=== PATIENT | female | born 1950 | race Caucasian/White ===

== ENCOUNTER 2018-02-03 15:15 | Emergency (ER) | payer OTHER, MEDICAID ==
[2018-02-03 16:19] LABS: % BASOPHILS 0.6 % (0.0-2.0); % EOSINOPHILS 0.8 % (0.0-5.0); % LYMPHOCYTES 20.2 % (20.0-50.0); % MONOCYTES 8.7 % (2.0-10.0); % NEUTROPHILS 69.7 % (40.0-80.0); BASOPHILE ABSOLUTE 0.1 Th/cumm (0-0.2); EOSINOPHILE ABSOLUTE 0.1 Th/cmm (0.1-0.4); HEMATOCRIT 36.9 % (41.0-60); HEMOGLOBIN 12.7 gm/dL (12-16); LYMPHOCYTE ABSOLUTE 2.3 Th/cmm (1.5-3.0); MEAN CELL VOLUME 88.3 fl (81-100); MEAN CORPUSCULAR HEMOGLOBIN 30.3 pg (27.0-31.0); MEAN CORPUSCULAR HGB CONC 34.3 pg (28.0-36.0); MEAN PLATELET VOLUME 8.8 fl; NEUTROPHILE ABSOLUTE 7.7 Th/cmm (1.8-8.0); PLATELET COUNT 258 Th/cmm (150-400); RED BLOOD COUNT 4.18 Mil/cmm (3.80-5.20); RED CELL DISTRIBUTION WIDTH 12.8 % (11.5-20.0); WHITE BLOOD COUNT 11.2 Th/cmm (4.8-10.8)
[2018-02-03 16:31] LABS: ANION GAP 16.6 (7.0-16.0); CALCIUM SERUM 9.7 mg/dL (8.6-10.3); CARBON DIOXIDE 22.7 mEq/L (21.0-31.0); CREATININE - SERUM 1.2 mg/dL (0.6-1.2); GFR AFRICAN-AMERICAN 57.3 ml/min (>90); GFR NON AFRICAN-AMERICAN 47.3 ml/min; POTASSIUM SERUM 4.3 mEq/L (3.5-5.1)
--- NOTE | 2018-02-03 16:52 | ED Physician Chart ---
ED Chief Complaint/HPI - Patient Information Date Seen:: 02/03/18 Time Seen:: 16:48 Chief Complaint:: Urinary burning sensation and frequency History of Present Illness:: 67 yo female had urinary burning sensation and frequency for 2 days. She had nausea, no vomiting, no fever. Patient had edema in bilateral lower extremities for 2 weeks. Allergies:: Allergies Allergy/AdvReac Type Severity Reaction Status Date / Time codeine Allergy Verified 08/15/16 10:31 Vitals:: Vital Signs - 8 hr 02/03/18 15:44 Temp 98.1 F HR 52 RR 16 BP 130/49 O2 Sat % 97 ED Review of Systems - Review of Systems General/Constitutional: No fever Skin: No rash Head: No headache Eyes: No pain ENT: No nasal drainage Neck: No neck pain Cardio Vascular: No chest pain Pulmonary: No SOB GI: Nausea, No vomiting Musculoskeletal: No bone or joint pain Neurological: No focal symptoms ED Past Medical History - Past Medical History Past Medical History: HTN, DM Social History: Non Smoker, No Alcohol, No Drug Use Surgical History: Family Medical History - Family Member Mother History Unknown: Yes Ethnicity: Living Status: Hx Family Cancer: Yes father History Unknown: Yes Hx Family Diabetes: Yes ED Physical Exam - Physical Examination General/Constitutional: Awake Head: Atraumatic Eyes: PERRL Skin: No skin lesions ENMT: Nasal exam nl Neck: No nuchal rigidity Respiratory: No Wheeze/Rhonchi/Rales Cardio Vascular: RRR, No murmur, gallop, rubs, NL S1 S2 GI: Nondistended Extremities: normal strength in all extremities Other Extremities comments:: 1+ edema in BLE Neuro/Psych: No focal deficits ED Labs/Radiology/EKG Results - Lab Results Results: Laboratory Tests 02/03/18 02/03/18 02/03/18 16:05 16:05 16:05 WBC 11.2 H RBC 4.18 Hgb 12.7 Hct 36.9 L MCV 88.3 MCH 30.3 MCHC Differential 34.3 RDW 12.8 Plt Count 258 MPV 8.8 Neutrophils % 69.7 Lymphocytes % 20.2 Monocytes % 8.7 Eosinophils % 0.8 Basophils % 0.6 Sodium 131 L Potassium 4.3 Chloride 96 L Carbon Dioxide 22.7 Anion Gap 16.6 H BUN 29 H Creatinine 1.2 Est GFR ( Amer) 57.3 Est GFR (Non-Af Amer) 47.3 BUN/Creatinine Ratio 24.2 Glucose 130 H Calcium 9.7 Creatine Kinase 50 Troponin I 0.01 Laboratory Last Values WBC 11.2 Th/cmm (4.8-10.8) H 02/03/18 16:05 RBC 4.18 Mil/cmm (3.80-5.20) 02/03/18 16:05 Hgb 12.7 gm/dL (12-16) 02/03/18 16:05 Hct 36.9 % (41.0-60) L 02/03/18 16:05 MCV 88.3 fl (81-100) 02/03/18 16:05 MCH 30.3 pg (27.0-31.0) 02/03/18 16:05 MCHC Differential 34.3 pg (28.0-36.0) 02/03/18 16:05 RDW 12.8 % (11.5-20.0) 02/03/18 16:05 Plt Count 258 Th/cmm (150-400) 02/03/18 16:05 MPV 8.8 fl 02/03/18 16:05 Neutrophils % 69.7 % (40.0-80.0) 02/03/18 16:05 Lymphocytes % 20.2 % (20.0-50.0) 02/03/18 16:05 Monocytes % 8.7 % (2.0-10.0) 02/03/18 16:05 Eosinophils % 0.8 % (0.0-5.0) 02/03/18 16:05 Basophils % 0.6 % (0.0-2.0) 02/03/18 16:05 Sodium 131 mEq/L (136-145) L 02/03/18 16:05 Potassium 4.3 mEq/L (3.5-5.1) 02/03/18 16:05 Chloride 96 mEq/L (98-107) L 02/03/18 16:05 Carbon Dioxide 22.7 mEq/L (21.0-31.0) 02/03/18 16:05 Anion Gap 16.6 (7.0-16.0) H 02/03/18 16:05 BUN 29 mg/dL (7-25) H 02/03/18 16:05 Creatinine 1.2 mg/dL (0.6-1.2) 02/03/18 16:05 Est GFR ( Amer) 57.3 ml/min (>90) 02/03/18 16:05 Est GFR (Non-Af Amer) 47.3 ml/min 02/03/18 16:05 BUN/Creatinine Ratio 24.2 02/03/18 16:05 Glucose 130 mg/dL (70-105) H 02/03/18 16:05 Calcium 9.7 mg/dL (8.6-10.3) 02/03/18 16:05 Creatine Kinase 50 U/L (30-223) 02/03/18 16:05 Troponin I 0.01 ng/mL (0.01-0.05) 02/03/18 16:05 Urine Source RANDOM 02/03/18 17:10 Urine Color YELLOW 02/03/18 17:10 Urine Clarity HAZY (CLEAR) 02/03/18 17:10 Urine pH 5.5 (4.6 - 8.0) 02/03/18 17:10 Ur Specific Balsam 1.010 (1.005-1.030) 02/03/18 17:10 Urine Protein NEGATIVE mg/dL (NEGATIVE) 02/03/18 17:10 Urine Glucose (UA) NEGATIVE mg/dL (NEGATIVE) 02/03/18 17:10 Urine Ketones NEGATIVE mg/dL (NEGATIVE) 02/03/18 17:10 Urine Blood NEGATIVE (NEGATIVE) 02/03/18 17:10 Urine Nitrate NEGATIVE (NEGATIVE) 02/03/18 17:10 Urine Bilirubin NEGATIVE (NEGATIVE) 02/03/18 17:10 Urine Urobilinogen 0.2 E.U./dL (0.2 - 1.0) 02/03/18 17:10 Ur Leukocyte Esterase MODERATE (NEGATIVE) H 02/03/18 17:10 Urine RBC 0-2 /hpf (0-5) 02/03/18 17:10 Urine WBC 10-25 /hpf (0-5) H 02/03/18 17:10 Ur Epithelial Cells MANY /lpf (FEW) 02/03/18 17:10 Urine Bacteria FEW /hpf (NONE SEEN) 02/03/18 17:10 - Radiology Results Results: CXR: no focal consolidation ED Assessment - Assessment General Assessment: UTI Leukocytosis Dehydration Assessment/Comments:: CBC, CMP, UA Rocephin 1g IV NS 1L IV bolus D/c home F/u PCP or return to ER if symptoms worsen ED Septic Shock - . Is Septic Shock (SBP<90, OR Lactate>4 mmol\L) present?: No - <6hrs of presentation: Vital Signs: Vital Signs - 8 hr 02/03/18 15:44 Temp 98.1 F HR 52 RR 16 BP 130/49 O2 Sat % 97 ED Reassessment (Disposition) - Reassessment Reassessment Condition:: Improved - Patient Disposition Discharge/Transfer:: Home ED Discharge Plan - Patient Disposition Admit/Discharge/Transfer: PT DISCHARGED HOME Condition at Disposition: Stable Instructions: Urinary Tract Infection, [id number], Dehydration, Adult, Easy- to-Read
[2018-02-03] MEDS ORDERED: Sodium Chloride 0.9% 1,000 ML IV ONE (18:31)
[2018-02-03] MEDS ORDERED: cefTRIAXone 1 GM in Sodium Chloride 0.9% 50 ML IV ONE (18:32)
[2018-02-03 19:19] LABS: URINE MICROSCOPIC INDICATED? YES; URINE SOURCE RANDOM
[2018-02-03 19:24] LABS: URINE BILIRUBIN NEGATIVE (NEGATIVE); URINE BLOOD NEGATIVE (NEGATIVE); URINE GLUCOSE (UA) NEGATIVE (NEGATIVE); URINE KETONE NEGATIVE (NEGATIVE); URINE LEUKOCYTE ESTERASE MODERATE (NEGATIVE); URINE NITRATE NEGATIVE (NEGATIVE); URINE PH 5.5 (4.6 - 8.0); URINE PROTEIN NEGATIVE (NEGATIVE); URINE UROBILINOGEN 0.2 E.U./dL (0.2 - 1.0)
[2018-02-03 19:28] LABS: URINE CLARITY HAZY (CLEAR); URINE COLOR YELLOW
[2018-02-03 19:29] LABS: URINE RBC 0-2 /hpf (0-5)
[2018-02-03 19:31] LABS: URINE BACTERIA FEW /hpf (NONE SEEN); URINE EPITHELIAL CELLS MANY /lpf (FEW)
--- NOTE | 2018-02-04 09:16 | Diagnostic Imaging Report ---
Chest x-ray single view History: Chest pain Comparison: 10/05/2016 The heart size is normal. No focal pulmonary parenchymal processes. No hilar or mediastinal abnormalities. Impression: No acute abnormalities
== END 2018-02-03 21:53 | disposition home or self-care (01) ==
LOC: ER 15:15
DX: N39.0 Urinary tract infection, site not specified (principal); D72.829 Elevated white blood cell count, unspecified; E86.0 Dehydration; I10 Essential (primary) hypertension; E11.9 Type 2 diabetes mellitus without complications; Z88.5 Allergy status to narcotic agent
CPT/HCPCS: 99285; 96365; 93005; 71045; 84484; 36415; 85025; 87086; 81001; 82550; 80048; J0696; J7030

== ENCOUNTER 2018-02-09 15:42 | Inpatient (IN) | payer OTHER, MEDICAID ==
--- NOTE | 2018-02-09 16:12 | ED Physician Chart ---
ED Chief Complaint/HPI - Patient Information Date Seen:: 02/09/18 Time Seen:: 16:00 Chief Complaint:: rash History of Present Illness:: Patient has had a rash for a few weeks but she got more lesions this morning. Patient had her first seizure with generalized shaking 5 days ago. She was admitted to [facility] where a CT head was done which was reportedly normal. Patient was discharged from [facility] yesterday. Patient has been on Xarelta 15 mg QD for a few years. Allergies:: Allergies Allergy/AdvReac Type Severity Reaction Status Date / Time codeine Allergy Verified 02/09/18 15:53 Vitals:: Vital Signs - 8 hr 02/09/18 15:47 Temp 98.8 F HR 74 RR 16 BP 118/58 O2 Sat % 99 Historian:: Patient, Friend Review:: Nurse's Note Reviewed ED Review of Systems - Review of Systems General/Constitutional: No fever, No chills, No weight loss, No weakness, No diaphoresis, No edema, No loss of appetite Skin: Skin lesions, Rash Head: No headache, No light-headedness Eyes: No loss of vision, No pain, No diplopia ENT: No earache, No nasal drainage, No sore throat, No tinnitus Neck: No neck pain, No swelling, No thyromegaly, No stiffness, No mass noted Cardio Vascular: No chest pain, No palpitations, No PND, No orthopnea, No edema Pulmonary: No SOB, No cough, No sputum, No wheezing GI: No nausea, No vomiting, No diarrhea, No pain, No melena, No hematochezia, No constipation, No hematemesis G/U: No dysuria, No frequency, No hematuria Musculoskeletal: No bone or joint pain, No back pain, No muscle pain Endocrine: No polyuria, No polydipsia Psychiatric: No prior psych history, No depression, No anxiety, No suicidal ideation Hematopoietic: No bruising, No lymphadenopathy Allergic/Immuno: No urticaria, No angioedema Neurological: No syncope, No focal symptoms, No weakness, No paresthesia, No headache, No seizure, No dizziness, No confusion, No vertigo ED Past Medical History - Past Medical History Past Medical History: HTN, DM Family History: Diabetes Melitus Social History: Non Smoker, No Alcohol Surgical History: other (cervical spine after a fall) Psychiatricy History: None Medication: Reviewed Family Medical History - Family Member Mother History Unknown: Yes Ethnicity: Living Status: Hx Family Cancer: No Hx Family Coronary Artery Disease: No Hx Family Congestive Heart Failure: No Hx Family Hypertension: No Hx Family Stroke: No Hx Family Diabetes: No Hx Family Seizures: No Hx Family Dementia: No Hx Family AIDS: No Hx Family HIV: No Hx Family COPD: No Hx Family Hepatitis: No Hx Family Psychiatric Problems: No Hx Family Tuberculosis: No father History Unknown: Yes Ethnicity: Living Status: Hx Family Cancer: No Hx Family Coronary Artery Disease: No Hx Family Congestive Heart Failure: No Hx Family Hypertension: Yes Hx Family Stroke: No Hx Family Diabetes: Yes Hx Family Seizures: No Hx Family Dementia: No Hx Family AIDS: No Hx Family HIV: No Hx Family COPD: No Hx Family Hepatitis: No Hx Family Psychiatric Problems: No Hx Family Tuberculosis: No ED Physical Exam - Physical Examination General/Constitutional: Well-developed, well-nourished, Alert, No distress Head: Atraumatic Eyes: Lids, conjuctiva normal, PERRL Other Skin comments:: Widespread petechia ENMT: External ears, nose nl, TM canals nl, Nasal exam nl Other ENMT comments:: Upper dentures Neck: No nuchal rigidity Respiratory: Nl effort/Exclusion, Clear to Auscultation Other Cardio Vascular comments:: Irregularly irregular rhythm with no murmur or extra sound GI: No tenderness/rebounding/guarding : No CVA tenderness Extremities: Normal digits & nails Neuro/Psych: No focal deficits ED Labs/Radiology/EKG Results - Lab Results Results: Laboratory Results - last 24 hr 02/09/18 02/09/18 02/09/18 16:18 16:18 16:18 WBC 12.0 H RBC 4.27 Hgb 12.8 Hct 38.7 L MCV 90.6 MCH 29.9 MCHC Differential 33.0 RDW 13.2 Plt Count 196 MPV 9.9 Neutrophils % 79.1 Lymphocytes % 11.5 L Monocytes % 8.6 Eosinophils % 0.3 Basophils % 0.5 PT 15.8 H INR 1.49 H PTT (Actin FS) 39.5 H Sodium 133 L Potassium 4.8 Chloride 102 Carbon Dioxide 17.9 L Anion Gap 17.9 H BUN 23 Creatinine 1.1 Est GFR ( Amer) > 60.0 Est GFR (Non-Af Amer) 52.3 BUN/Creatinine Ratio 20.9 Glucose 148 H Calcium 9.4 - EKG Interpretations Rate & Rhythm: atrial fibrillation with a rate of 67 [place]: normal axis ED Assessment - Assessment General Assessment: I spoke to Dr. Cotton and she will admit the patient and wishes a consult to Dr. Garrison Hatfield who according to Dr. Cotton put the patient on Xarelto. Spoke to Dr. Hernandez Hatfield who suggested a consult to which was already ordered by Dr. Cotton. ED Septic Shock - . Is Septic Shock (SBP<90, OR Lactate>4 mmol\L) present?: No - <6hrs of presentation: Vital Signs: Vital Signs - 8 hr 02/09/18 15:47 Temp 98.8 F HR 74 RR 16 BP 118/58 O2 Sat % 99 ED Reassessment (Disposition) - Reassessment Reassessment Condition:: Unchanged - Diagnosis Diagnosis:: petechia; history of recent first seizure. - Patient Disposition Admitted to:: Med/Surg Spoke to:: Nico Cotton Admitting Medical Physician:: Nico Cotton Condition at Disposition:: Stable, Unchanged
[2018-02-09 16:30] LABS: % BASOPHILS 0.5 % (0.0-2.0); % EOSINOPHILS 0.3 % (0.0-5.0); % LYMPHOCYTES 11.5 % (20.0-50.0); % MONOCYTES 8.6 % (2.0-10.0); % NEUTROPHILS 79.1 % (40.0-80.0); BASOPHILE ABSOLUTE 0.1 Th/cumm (0-0.2); HEMATOCRIT 38.7 % (41.0-60); HEMOGLOBIN 12.8 gm/dL (12-16); LYMPHOCYTE ABSOLUTE 1.4 Th/cmm (1.5-3.0); MEAN CELL VOLUME 90.6 fl (81-100); MEAN CORPUSCULAR HEMOGLOBIN 29.9 pg (27.0-31.0); MEAN PLATELET VOLUME 9.9 fl; NEUTROPHILE ABSOLUTE 9.5 Th/cmm (1.8-8.0); PLATELET COUNT 196 Th/cmm (150-400); RED BLOOD COUNT 4.27 Mil/cmm (3.80-5.20); RED CELL DISTRIBUTION WIDTH 13.2 % (11.5-20.0)
[2018-02-09 16:37] LABS: INR 1.49 (0.5-1.4); PROTHROMBIN TIME (TEST) 15.8 SECONDS (9.5-11.5)
[2018-02-09 16:49] LABS: ANION GAP 17.9 (7.0-16.0); BUN - UREA NITROGEN 23 mg/dL (7-25); CALCIUM SERUM 9.4 mg/dL (8.6-10.3); CARBON DIOXIDE 17.9 mEq/L (21.0-31.0); CHLORIDE 102 mEq/L (98-107); CREATININE - SERUM 1.1 mg/dL (0.6-1.2); GFR AFRICAN-AMERICAN > 60.0 ml/min (>90); GFR NON AFRICAN-AMERICAN 52.3 ml/min; GLUCOSE 148 mg/dL (70-105); POTASSIUM SERUM 4.8 mEq/L (3.5-5.1); SODIUM SERUM 133 mEq/L (136-145)
[2018-02-09] MEDS ORDERED: Hydrocodone/APAP 10 mg/325 mg Tab PO PRN ×2 (23:35→23:37)
[2018-02-10 01:05] LABS: URINE MICROSCOPIC INDICATED? YES; URINE SOURCE CLEAN C
[2018-02-10 01:07] LABS: URINE BILIRUBIN NEGATIVE (NEGATIVE); URINE BLOOD NEGATIVE (NEGATIVE); URINE GLUCOSE (UA) NEGATIVE (NEGATIVE); URINE KETONE NEGATIVE (NEGATIVE); URINE LEUKOCYTE ESTERASE NEGATIVE (NEGATIVE); URINE NITRATE NEGATIVE (NEGATIVE); URINE PROTEIN NEGATIVE (NEGATIVE); URINE UROBILINOGEN 0.2 E.U./dL (0.2 - 1.0)
[2018-02-10] MEDS: D5-0.45NS 1,000 ML IV SCH (01:24)
[2018-02-10 01:42] LABS: URINE CLARITY CLEAR (CLEAR); URINE COLOR YELLOW
[2018-02-10 01:43] LABS: URINE BACTERIA FEW /hpf (NONE SEEN); URINE EPITHELIAL CELLS FEW /lpf (FEW); URINE RBC 0-2 /hpf (0-5); URINE WBC 0-2 /hpf (0-5)
[2018-02-10 04:48] VITALS: BP 129/77
[2018-02-10] MEDS: INSULIN ASPART SLIDING SCALE 100 UNITS/ML UNIT SUBQ SCH ×2 (08:20→20:30)
[2018-02-10] MEDS ORDERED: Pneumococcal Vaccine 0.5 mL Vial IM ONE (09:00)
--- NOTE | 2018-02-10 12:50 | Diagnostic Imaging Report ---
Bilateral lower extremity Doppler venous ultrasound exam HISTORY: Pain/swelling Sonographic sector images were obtained through the deep venous systems of both legs. Associated Doppler data was obtained. The exam demonstrates patency of the common femoral, superficial femoral, popliteal, and posterior tibial veins bilaterally. Specifically, no thrombus is seen. There are normal compressibility and augmentation responses. IMPRESSION: Negative exam for deep vein thrombophlebitis.
--- NOTE | 2018-02-10 16:51 | History & Physical ---
ADMIT DATE: 02/10/2018 CHIEF COMPLAINT: Petechial rash, which developed recently. HISTORY OF PRESENT ILLNESS: The patient is known to my practice for several years and she is a 67-year-old female who was found to have brief episode of the seizure-like activity. At that time, the patient was transported to the [facility] where she was found to have a heart rate of 38-40 beats per minute on arrival and she was seen by the consultants and admitted and the neurologist has done the EEG and showed seizures and the patient was started on the Lamictal and the product management manager also has done an echocardiogram and the patient was discharged with the medication Lamictal for the seizures and following the discharge on 02/08/2018, the patient noticed on 02/09/2018 when she woke up petechial rash on her extremities, thighs, neck and she ended up in the Emergency Room of the [facility] and In the [facility], the ER physician did all the workup and the rest of the labs were all normal except the leukocytes were elevated to 14,000. The patient also has a history of the atrial fibrillation, for which she was on Xarelto for several years, so hence the etiology of the petechial rash was yet to be determined and then the patient was admitted here for the observation. In the previous study for the CT scan of the head, which was done for the seizure was reported to be normal and the patient had no more seizures in the [facility] and then she was discharged. PAST MEDICAL HISTORY: Significant for hypertension, coronary artery disease and diabetes type 2. SURGICAL HISTORY: None. FAMILY HISTORY: Noncontributory. SOCIAL HISTORY: No smoking, no alcohol, no drugs. She lives alone by herself and now her eldest son joined her to stay with her. ALLERGIES: She is allergic to CODEINE. REVIEW OF SYSTEMS: CONSTITUTIONAL: There is no fever, no weakness. SKIN: Has a petechial rash, see the pictures and is on both extremities and also on the neck and abdomen and other than that, there is no blanching noted. HEENT: Head: There is no headache. Ears, nose and throat: No nasal discharge. No throat pain. Eyes: No vision change. CARDIOVASCULAR: No palpitations. EXTREMITIES: No pedal edema. PULMONARY: No cough, no phlegm, no shortness of breath. GASTROINTESTINAL: No abdominal pain, no diarrhea, no nausea or vomiting. GENITOURINARY: No dysuria. MUSCULOSKELETAL: No bone or joint pain. NEUROLOGIC: The patient has no altered mentation and she does not have any focal numbness or weakness and no headache, no syncope. PSYCHIATRIC: No depression, no anxiety and no major psychiatric diagnosis entertained in the past. PHYSICAL EXAMINATION: GENERAL: The patient is awake and alert and recognized me and happy to see me. VITAL SIGNS: Temperature 98.48, heart rate 74, respirations 16, blood pressure 118/58 and oxygen saturation 99% on the room air. HEENT: Head is atraumatic and normocephalic. Eyes: PERRLA. Ear, nose, mouth and throat: Normal. Tongue is pink and moist. NECK: Supple. No lymphadenopathy noted. LUNGS: Clear to auscultate. No wheezes, no rhonchi. HEART: S1 and S2 heard with a regular rate and rhythm. No murmurs and no gallops. ABDOMEN: Nontender. No palpable lesions and normal bowel sounds. No guarding. EXTREMITIES: Mild edema was noted on the left lower extremity and then the Doppler study was done for the DVT, which was negative and the strength 5/5 in all 4 extremities and full range of motion noted and the patient is ambulatory and good muscle tone. NEUROLOGIC: The patient has no sensory and motor exam deficits and nonfocal. VASCULAR: Bilateral radial pulses were strong and equal and bilateral femoral pulses were equal. SKIN: As mentioned, petechial rashes noted on the both lower extremities and on the upper extremities and on the neck and on the abdomen on the left side. LABORATORY DATA: Lab results, which was done here shows WBC of 12.0 and hemoglobin 12.8, hematocrit 38.7, and platelet 196. BUN is 23 and creatinine is 1.19, sodium 133, potassium 4.8 and glucose 148 and calcium 9.4 and as mentioned before, ESR is 104. D-dimer is 903. BNP is 243. ASSESSMENT: At this time is: 1. Nonspecific petechial rash, etiology to be determined. 2. History of recent new onset seizures. 3. Lamictal, probable cause of the petechiae, so we will change it. 4. History of coronary artery disease and bradycardia. 5. Diabetes type 2. 6. Hypertension. 7. Atrial fibrillation. PLAN: To continue the seizure medications and continue seizure precautions and Dr. Hernandez Hatfield consulted for Cardiology, atrial fibrillation. Amma with atrial fibrillation and decision to make to continue the Xarelto and Dr. Martin has been consulted as Hematology/Oncology to evaluate on this petechial rash and the other abnormal labs and the patient has been on Levaquin from the discharge for the urinary tract infection of the Klebsiella pneumoniae as per the chart from the [facility], so Dr. Francisco Hatfield has been consulted to evaluate the antibiotic requirement and I spoke to Dr. Gonzalez's office at [phone] who is the medical assistant supervisortelephone directory delive[employer] and explained the situation and then he agrees with the management and he said to continue the tests, which might aid to determine the etiology of the rash and he agreed with my suggestion to change the Lamictal to Keppra and continue the Xarelto and will follow up her outpatient if Brynn Martin clears her from the petechial rash. [facility]# [id number]
--- NOTE | 2018-02-10 21:38 | Consultation ---
DATE OF CONSULTATION: 02/10/2018 HEMATOLOGY ONCOLOGY CONSULTATION REFERRING PHYSICIAN: Dr. Cotton. REASON FOR CONSULTATION: Purpura of the skin and leukocytosis. HISTORY OF PRESENT ILLNESS: The patient is a 67-year-old female who apparently was admitted to [facility] with a heart block and seizure. She was started on Lamictal and per the patient, she did not take it. The patient has been having recurrent rash on the skin of the upper and lower extremities and trunk. Per the caregiver, the patient had this going on for the past 1 month. The patient was found to have elevated white count was asked to evaluate. PAST MEDICAL HISTORY: Atrial fibrillation, on Xarelto; hypertension, heart block and diabetes. PAST SURGICAL HISTORY: None. FAMILY HISTORY: Noncontributory. SOCIAL HISTORY: No smoking or drinking. MEDICATIONS: Reviewed. PHYSICAL EXAMINATION: GENERAL: She is awake, alert, oriented. VITAL SIGNS: Stable. HEENT: Petechial rash. NECK: No lymphadenopathy. CHEST: Vesicular rash in chest. ABDOMEN: Soft. No organomegaly. EXTREMITIES: Petechial rash on both upper and lower extremities and back. NERVOUS SYSTEM: Nonfocal. LABORATORY DATA: White count 12, hemoglobin 12.8, platelet count 196. INR 1.49, PTT 39.5. Chemistry: Creatinine 1.1. ASSESSMENT AND PLAN: Palpable purpura on the trunk, upper and lower extremities, recurrent for the past 1 month. 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 The patient will also need the help from the director of graduate admissions and may need a skin biopsy for confirmation of the pathology. After obtaining all the above work, we will start empiric steroids. A chest x-ray will be also obtained and abdominal ultrasound because of the abnormal liver functions. The elevation of the INR is likely related to Xarelto. Thank you, Dr. Cotton for the opportunity to participate in the care of this interesting case. JOB# [id number]
[2018-02-11] MEDS: D5-0.45NS 1,000 ML IV SCH ×2 (01:12→22:09)
[2018-02-11] MEDS: INSULIN ASPART SLIDING SCALE 100 UNITS/ML UNIT SUBQ SCH ×2 (08:35→17:58)
--- NOTE | 2018-02-11 08:35 | Consultation ---
DATE OF CONSULTATION: 02/10/2018 HISTORY OF PRESENT ILLNESS: This is a 67-year-old female patient recently admitted with seizure activity at the [facility]. The patient also found to have bradycardia with atrial fibrillation. The patient has been on anticoagulation with Xarelto. The patient was discharged. At the present time, the patient developed petechia on the neck, chest, legs, and thighs. Hence, the patient is admitted. PAST MEDICAL HISTORY: Atrial fibrillation, urinary tract infection with [place], hypertension, angina, diabetes mellitus type 2, grand mal seizure, sinus bradycardia, and osteoporosis. FAMILY HISTORY: Unremarkable. SOCIAL HISTORY: No history of smoking, alcohol abuse. ALLERGIES: No known allergies. PHYSICAL EXAMINATION: VITAL SIGNS: Blood pressure 130/70, pulse 60, and respirations 20. HEAD: Normocephalic. No lumps or bumps. EYES: Pupils equal, reactive to light. Fundi show AV nicking, sclerae white, conjunctivae pink. NECK: Carotid 2+. Normal upstroke. JVD flat. Thyroid not palpable. Lymph nodes not palpable. CHEST: Shows increased AP diameter. No kyphosis, scoliosis. LUNGS: Bilateral bronchovesicular breath sounds. HEART: PMI fifth intercostal space over lateral to midclavicular line. S1 irregular. S2, S3, S4, soft systolic murmur. ABDOMEN: Soft. Liver, spleen not palpable. No organomegaly. Bowel sounds active. NEUROLOGIC: Grand mal seizures. EXTREMITIES: Peripheral pulses normal. The patient has petechial rash on the neck, chest, and thigh. CLINICAL IMPRESSION: 1. Petechial rash most likely secondary to Lamictal for seizures. 2. Grand mal seizures. 3. Atrial fibrillation. 4. Hypertension. 5. Angina. 6. Diabetes mellitus type 2. 7. Sinus bradycardia. 8. Osteoporosis. PLAN: At the present time, we will continue the patient on antibiotics. Have Hematology consult in view of petechia. Continue with Xarelto. JOB# [id number]
--- NOTE | 2018-02-11 08:58 | Diagnostic Imaging Report ---
Chest x-ray 2 views HISTORY:Pain The overall heart size is normal. No focal pulmonary processes. No hilar or mediastinal abnormalities. Degenerative changes and diffuse osteoporosis seen in the spine. Surgical changes noted within the cervical spine area. IMPRESSION: 1. No acute pulmonary processes
--- NOTE | 2018-02-11 13:05 | General Progress Note ---
Subjective - Review of Systems Service Date: 02/11/18 Objective - Results Result Diagrams: 02/09/18 16:18 02/09/18 16:18 Recent Labs: Laboratory Last Values WBC 12.0 Th/cmm (4.8-10.8) H 02/09/18 16:18 RBC 4.27 Mil/cmm (3.80-5.20) 02/09/18 16:18 Hgb 12.8 gm/dL (12-16) 02/09/18 16:18 Hct 38.7 % (41.0-60) L 02/09/18 16:18 MCV 90.6 fl (81-100) 02/09/18 16:18 MCH 29.9 pg (27.0-31.0) 02/09/18 16:18 MCHC Differential 33.0 pg (28.0-36.0) 02/09/18 16:18 RDW 13.2 % (11.5-20.0) 02/09/18 16:18 Plt Count 196 Th/cmm (150-400) 02/09/18 16:18 MPV 9.9 fl 02/09/18 16:18 Neutrophils % 79.1 % (40.0-80.0) 02/09/18 16:18 Lymphocytes % 11.5 % (20.0-50.0) L 02/09/18 16:18 Monocytes % 8.6 % (2.0-10.0) 02/09/18 16:18 Eosinophils % 0.3 % (0.0-5.0) 02/09/18 16:18 Basophils % 0.5 % (0.0-2.0) 02/09/18 16:18 ESR 104 mm/hr (0-30) H 02/10/18 05:15 PT 15.8 SECONDS (9.5-11.5) H 02/09/18 16:18 INR 1.49 (0.5-1.4) H 02/09/18 16:18 PTT (Actin FS) 39.5 SECONDS (26.0-38.0) H 02/09/18 16:18 D-Dimer 903 ng/mL (100-400) H 02/10/18 05:15 Sodium 133 mEq/L (136-145) L 02/09/18 16:18 Potassium 4.8 mEq/L (3.5-5.1) 02/09/18 16:18 Chloride 102 mEq/L (98-107) 02/09/18 16:18 Carbon Dioxide 17.9 mEq/L (21.0-31.0) L 02/09/18 16:18 Anion Gap 17.9 (7.0-16.0) H 02/09/18 16:18 BUN 23 mg/dL (7-25) 02/09/18 16:18 Creatinine 1.1 mg/dL (0.6-1.2) 02/09/18 16:18 Est GFR ( Amer) > 60.0 ml/min (>90) 02/09/18 16:18 Est GFR (Non-Af Amer) 52.3 ml/min 02/09/18 16:18 BUN/Creatinine Ratio 20.9 02/09/18 16:18 Glucose 148 mg/dL (70-105) H 02/09/18 16:18 POC Glucose 155 MG/DL (70 - 105) H 02/11/18 08:24 Calcium 9.4 mg/dL (8.6-10.3) 02/09/18 16:18 B-Natriuretic Peptide 243.0 pg/mL (5.0-100.0) H 02/10/18 05:15 Urine Source CLEAN C 02/10/18 00:20 Urine Color YELLOW 02/10/18 00:20 Urine Clarity CLEAR (CLEAR) 02/10/18 00:20 Urine pH 6.0 (4.6 - 8.0) 02/10/18 00:20 Ur Specific [place] <= 1.005 (1.005-1.030) 02/10/18 00:20 Urine Protein NEGATIVE mg/dL (NEGATIVE) 02/10/18 00:20 Urine Glucose (UA) NEGATIVE mg/dL (NEGATIVE) 02/10/18 00:20 Urine Ketones NEGATIVE mg/dL (NEGATIVE) 02/10/18 00:20 Urine Blood NEGATIVE (NEGATIVE) 02/10/18 00:20 Urine Nitrate NEGATIVE (NEGATIVE) 02/10/18 00:20 Urine Bilirubin NEGATIVE (NEGATIVE) 02/10/18 00:20 Urine Urobilinogen 0.2 E.U./dL (0.2 - 1.0) 02/10/18 00:20 Ur Leukocyte Esterase NEGATIVE (NEGATIVE) 02/10/18 00:20 Urine RBC 0-2 /hpf (0-5) 02/10/18 00:20 Urine WBC 0-2 /hpf (0-5) 02/10/18 00:20 Ur Epithelial Cells FEW /lpf (FEW) 02/10/18 00:20 Urine Bacteria FEW /hpf (NONE SEEN) 02/10/18 00:20 - Physical Exam Vitals and I&O: Vital Signs Temp 98.2 F 02/11/18 12:00 Pulse 117 02/11/18 12:00 Resp 18 02/11/18 12:00 BP 118/61 02/11/18 12:00 Pulse Ox 95 02/11/18 12:00 Intake & Output 02/10/18 02/11/18 02/11/18 18:59 06:59 18:59 Intake Total 1600 Output Total 3 Balance 1597 Weight (lbs) 73.985 kg 71.622 kg Intake: Intake, IV Amount 1000 D5-0.45NS 1,000 ml @ 50 1000 mls/hr IV .Q20H [facility] Rx#: [id number] Oral 600 Output: Urine 3 Other: Stool Characteristics Formed Weight Source Bedscale Bedscale Active Medications: Current Medications Acetaminophen/Hydrocodone Bitart ([place] 10 Mg/325 Mg) 1 tab PO Q4H PRN PRN Reason: Severe Pain Stop: 04/10/18 22:29 Dextrose/Sodium Chloride (D5-0.45ns) 1,000 mls @ 50 mls/hr IV .Q20H [facility] Stop: 04/10/18 23:44 Last Admin: 02/11/18 01:12 Dose: 50 mls/hr Insulin Aspart (Novolog Insulin Sliding Scale) 0 units SUBQ BID [facility] PRN Reason: Protocol Stop: 04/11/18 08:59 Last Admin: 02/11/18 08:35 Dose: 2 units Levetiracetam (Keppra) 500 mg PO BID [facility] Stop: 04/11/18 16:59 Last Admin: 02/11/18 08:35 Dose: 500 mg Levofloxacin (Levaquin) 500 mg PO DAILY [facility] Stop: 02/15/18 09:01 Last Admin: 02/11/18 08:35 Dose: 500 mg Tramadol HCl (Ultram) 50 mg PO Q4HR PRN PRN Reason: Mild to moderate pain Stop: 04/10/18 22:29 Last Admin: 02/10/18 04:05 Dose: 50 mg General: Alert HEENT: Atraumatic Neck: Supple Abdomen: Soft Neurological: Normal gait Skin: Other (petechiae on trunk, upper and lower ext.) - Procedures Procedures: Procedures Procedure Code Date DESTRUCTION TONGUE LES 25.1 01/20/09 EXCISION OF TONGUE LESION 15752 01/20/09 Assessment/Plan - Assessment Assessment: * Likely vasculitis'; all [place] was ordered Start steroids will need help of Supervisor Customer Complaint Service when discharged
[2018-02-11] MEDS: methylPREDNISolone SS 40 mg Vial IVP SCH ×2 (13:51→22:10)
--- NOTE | 2018-02-11 14:01 | General Progress Note ---
Subjective - Review of Systems Service Date: 02/11/18 Subjective: Patient seen and examined. Awake, alert, denies any complaints. Objective - Results Result Diagrams: 02/09/18 16:18 02/09/18 16:18 Recent Labs: Laboratory Last Values WBC 12.0 Th/cmm (4.8-10.8) H 02/09/18 16:18 RBC 4.27 Mil/cmm (3.80-5.20) 02/09/18 16:18 Hgb 12.8 gm/dL (12-16) 02/09/18 16:18 Hct 38.7 % (41.0-60) L 02/09/18 16:18 MCV 90.6 fl (81-100) 02/09/18 16:18 MCH 29.9 pg (27.0-31.0) 02/09/18 16:18 MCHC Differential 33.0 pg (28.0-36.0) 02/09/18 16:18 RDW 13.2 % (11.5-20.0) 02/09/18 16:18 Plt Count 196 Th/cmm (150-400) 02/09/18 16:18 MPV 9.9 fl 02/09/18 16:18 Neutrophils % 79.1 % (40.0-80.0) 02/09/18 16:18 Lymphocytes % 11.5 % (20.0-50.0) L 02/09/18 16:18 Monocytes % 8.6 % (2.0-10.0) 02/09/18 16:18 Eosinophils % 0.3 % (0.0-5.0) 02/09/18 16:18 Basophils % 0.5 % (0.0-2.0) 02/09/18 16:18 ESR 104 mm/hr (0-30) H 02/10/18 05:15 PT 15.8 SECONDS (9.5-11.5) H 02/09/18 16:18 INR 1.49 (0.5-1.4) H 02/09/18 16:18 PTT (Actin FS) 39.5 SECONDS (26.0-38.0) H 02/09/18 16:18 D-Dimer 903 ng/mL (100-400) H 02/10/18 05:15 Sodium 133 mEq/L (136-145) L 02/09/18 16:18 Potassium 4.8 mEq/L (3.5-5.1) 02/09/18 16:18 Chloride 102 mEq/L (98-107) 02/09/18 16:18 Carbon Dioxide 17.9 mEq/L (21.0-31.0) L 02/09/18 16:18 Anion Gap 17.9 (7.0-16.0) H 02/09/18 16:18 BUN 23 mg/dL (7-25) 02/09/18 16:18 Creatinine 1.1 mg/dL (0.6-1.2) 02/09/18 16:18 Est GFR ( Amer) > 60.0 ml/min (>90) 02/09/18 16:18 Est GFR (Non-Af Amer) 52.3 ml/min 02/09/18 16:18 BUN/Creatinine Ratio 20.9 02/09/18 16:18 Glucose 148 mg/dL (70-105) H 02/09/18 16:18 POC Glucose 155 MG/DL (70 - 105) H 02/11/18 08:24 Calcium 9.4 mg/dL (8.6-10.3) 02/09/18 16:18 B-Natriuretic Peptide 243.0 pg/mL (5.0-100.0) H 02/10/18 05:15 Urine Source CLEAN C 02/10/18 00:20 Urine Color YELLOW 02/10/18 00:20 Urine Clarity CLEAR (CLEAR) 02/10/18 00:20 Urine pH 6.0 (4.6 - 8.0) 02/10/18 00:20 Ur Specific [place] <= 1.005 (1.005-1.030) 02/10/18 00:20 Urine Protein NEGATIVE mg/dL (NEGATIVE) 02/10/18 00:20 Urine Glucose (UA) NEGATIVE mg/dL (NEGATIVE) 02/10/18 00:20 Urine Ketones NEGATIVE mg/dL (NEGATIVE) 02/10/18 00:20 Urine Blood NEGATIVE (NEGATIVE) 02/10/18 00:20 Urine Nitrate NEGATIVE (NEGATIVE) 02/10/18 00:20 Urine Bilirubin NEGATIVE (NEGATIVE) 02/10/18 00:20 Urine Urobilinogen 0.2 E.U./dL (0.2 - 1.0) 02/10/18 00:20 Ur Leukocyte Esterase NEGATIVE (NEGATIVE) 02/10/18 00:20 Urine RBC 0-2 /hpf (0-5) 02/10/18 00:20 Urine WBC 0-2 /hpf (0-5) 02/10/18 00:20 Ur Epithelial Cells FEW /lpf (FEW) 02/10/18 00:20 Urine Bacteria FEW /hpf (NONE SEEN) 02/10/18 00:20 - Physical Exam Vitals and I&O: Vital Signs Temp 98.2 F 02/11/18 12:00 Pulse 117 02/11/18 12:00 Resp 18 02/11/18 12:00 BP 118/61 02/11/18 12:00 Pulse Ox 95 02/11/18 12:00 Intake & Output 02/10/18 02/11/18 02/11/18 18:59 06:59 18:59 Intake Total 1600 Output Total 3 Balance 1597 Weight (lbs) 73.985 kg 71.622 kg Intake: Intake, IV Amount 1000 D5-0.45NS 1,000 ml @ 50 1000 mls/hr IV .Q20H [facility] Rx#: [id number] Oral 600 Output: Urine 3 Other: Stool Characteristics Formed Weight Source Bedscale Bedscale Active Medications: Current Medications Acetaminophen/Hydrocodone Bitart ([place] 10 Mg/325 Mg) 1 tab PO Q4H PRN PRN Reason: Severe Pain Stop: 04/10/18 22:29 Dextrose/Sodium Chloride (D5-0.45ns) 1,000 mls @ 50 mls/hr IV .Q20H [facility] Stop: 04/10/18 23:44 Last Admin: 02/11/18 01:12 Dose: 50 mls/hr Insulin Aspart (Novolog Insulin Sliding Scale) 0 units SUBQ BID [facility] PRN Reason: Protocol Stop: 04/11/18 08:59 Last Admin: 02/11/18 08:35 Dose: 2 units Levetiracetam (Keppra) 500 mg PO BID [facility] Stop: 04/11/18 16:59 Last Admin: 02/11/18 08:35 Dose: 500 mg Levofloxacin (Levaquin) 500 mg PO DAILY [facility] Stop: 02/15/18 09:01 Last Admin: 02/11/18 08:35 Dose: 500 mg Methylprednisolone Sodium Succinate (Solu-Medrol) 60 mg IVP Q8HR [facility] Stop: 04/12/18 13:14 Last Admin: 02/11/18 13:51 Dose: 60 mg Tramadol HCl (Ultram) 50 mg PO Q4HR PRN PRN Reason: Mild to moderate pain Stop: 04/10/18 22:29 Last Admin: 02/10/18 04:05 Dose: 50 mg General: Alert HEENT: Atraumatic Neck: Supple Abdomen: Soft Neurological: Normal gait Skin: Other (petechiae on trunk, upper and lower ext.) - Procedures Procedures: Procedures Procedure Code Date DESTRUCTION TONGUE LES 25.1 01/20/09 EXCISION OF TONGUE LESION 57852 01/20/09 Assessment/Plan - Assessment Assessment: 1. Nonspecific petechial rash, etiology to be determined. 2. History of recent new onset seizures. 3. Lamictal, probable cause of the petechiae, so we will change it. 4. History of coronary artery disease and bradycardia. 5. Diabetes type 2. 6. Hypertension. 7. Atrial fibrillation. - Plan Plan: seizure precautions iv solumedrol as ordered by boating safety officer monitor HR cbc/bmp in am continue current plan of care, will follow store consultant recommendations
--- NOTE | 2018-02-11 19:30 | Consultation ---
DATE OF CONSULTATION: 02/10/2018 INFECTIOUS DISEASE CONSULTATION HISTORY OF PRESENT ILLNESS: This is a 67-year-old female, who was brought to the Emergency with complaint of tonic-clonic seizures lasting few minutes only as witnessed by surrounding people. The patient fell down because of seizures; however, she did not get any major injury. She was on blood thinner Xarelto for atrial fibrillation. The patient was found to have leukocytes. Infectious consultation was called. Workup shows UTI. The patient already on antibiotics. PAST MEDICAL HISTORY: Atrial fibrillation, hypertension, diabetes, osteoporosis. PAST SURGICAL HISTORY: Back surgery. FAMILY HISTORY: Diabetes present. SOCIAL HISTORY: Nonsmoker. ALLERGIES: None. REVIEW OF SYSTEMS: A 14-point review of system negative except above. PHYSICAL EXAMINATION: GENERAL: The patient is alert, awake, oriented x 3 without any seizure activity. VITAL SIGNS: Temperature 98, pulse 60, respirations 20, blood pressure 130/70. HEENT: Mild pallor, no icterus or plaque. NECK: Supple. LUNGS: Breath sounds bilateral. CARDIOVASCULAR: S1. ABDOMEN: Soft, bowel sounds present. NODES: No cervical lymph nodes. LABORATORY DATA: UA positive for UTI. Cultures are pending. White count 12,000. Chest x-ray reviewed: No infiltrates. DIAGNOSES: Urinary tract infection, Levaquin; seizures, workup as per Neurology; atrial fibrillation, anticoagulation. Rest of the care as ordered in CPOE. Thank you, Dr. Cotton, for this consultation. JOB# [id number]
[2018-02-12] MEDS: methylPREDNISolone SS 40 mg Vial IVP SCH ×3 (05:22→21:52)
[2018-02-12 06:59] LABS: % BASOPHILS 0.1 % (0.0-2.0); % EOSINOPHILS 0.1 % (0.0-5.0); % LYMPHOCYTES 11.1 % (20.0-50.0); % MONOCYTES 2.5 % (2.0-10.0); % NEUTROPHILS 86.2 % (40.0-80.0); HEMATOCRIT 34.2 % (41.0-60); HEMOGLOBIN 11.7 gm/dL (12-16); LYMPHOCYTE ABSOLUTE 0.5 Th/cmm (1.5-3.0); MEAN CELL VOLUME 89.6 fl (81-100); MEAN CORPUSCULAR HEMOGLOBIN 30.5 pg (27.0-31.0); MEAN CORPUSCULAR HGB CONC 34.1 pg (28.0-36.0); MEAN PLATELET VOLUME 9.3 fl; MONOCYTE ABSOLUTE 0.1 Th/cmm (0.3-1.0); NEUTROPHILE ABSOLUTE 3.5 Th/cmm (1.8-8.0); PLATELET COUNT 216 Th/cmm (150-400); RED BLOOD COUNT 3.81 Mil/cmm (3.80-5.20); RED CELL DISTRIBUTION WIDTH 13.1 % (11.5-20.0); WHITE BLOOD COUNT 4.1 Th/cmm (4.8-10.8)
[2018-02-12 07:21] LABS: BUN - UREA NITROGEN 14 mg/dL (7-25); CALCIUM SERUM 9.4 mg/dL (8.6-10.3); CARBON DIOXIDE 24.5 mEq/L (21.0-31.0); CHLORIDE 104 mEq/L (98-107); CREATININE - SERUM 0.6 mg/dL (0.6-1.2); GFR AFRICAN-AMERICAN > 60.0 ml/min (>90); GFR NON AFRICAN-AMERICAN > 60.0 ml/min; GLUCOSE 268 mg/dL (70-105); POTASSIUM SERUM 3.5 mEq/L (3.5-5.1); SODIUM SERUM 136 mEq/L (136-145)
[2018-02-12 10:09] LABS: HEP B CORE IGM Negative (Negative); HEP C ANTIBODY <0.1 s/co ratio (0.0-0.9)
[2018-02-12] MEDS: INSULIN ASPART SLIDING SCALE 100 UNITS/ML UNIT SUBQ SCH ×2 (10:57→18:30)
[2018-02-12] MEDS: D5-0.45NS 1,000 ML IV SCH (13:32)
--- NOTE | 2018-02-12 15:42 | General Progress Note ---
Subjective - Review of Systems Service Date: 02/12/18 Subjective: Patient seen and examined. Awake, alert, neice Analilia at bedside. Petechial rash much better. Objective - Results Result Diagrams: 02/12/18 06:22 02/12/18 06:22 Recent Labs: Laboratory Last Values WBC 4.1 Th/cmm (4.8-10.8) L 02/12/18 06:22 RBC 3.81 Mil/cmm (3.80-5.20) 02/12/18 06:22 Hgb 11.7 gm/dL (12-16) L 02/12/18 06:22 Hct 34.2 % (41.0-60) L 02/12/18 06:22 MCV 89.6 fl (81-100) 02/12/18 06:22 MCH 30.5 pg (27.0-31.0) 02/12/18 06:22 MCHC Differential 34.1 pg (28.0-36.0) 02/12/18 06:22 RDW 13.1 % (11.5-20.0) 02/12/18 06:22 Plt Count 216 Th/cmm (150-400) 02/12/18 06:22 MPV 9.3 fl 02/12/18 06:22 Neutrophils % 86.2 % (40.0-80.0) H 02/12/18 06:22 Lymphocytes % 11.1 % (20.0-50.0) L 02/12/18 06:22 Monocytes % 2.5 % (2.0-10.0) 02/12/18 06:22 Eosinophils % 0.1 % (0.0-5.0) 02/12/18 06:22 Basophils % 0.1 % (0.0-2.0) 02/12/18 06:22 ESR 104 mm/hr (0-30) H 02/10/18 05:15 PT 15.8 SECONDS (9.5-11.5) H 02/09/18 16:18 INR 1.49 (0.5-1.4) H 02/09/18 16:18 PTT (Actin FS) 39.5 SECONDS (26.0-38.0) H 02/09/18 16:18 D-Dimer 903 ng/mL (100-400) H 02/10/18 05:15 Sodium 136 mEq/L (136-145) 02/12/18 06:22 Potassium 3.5 mEq/L (3.5-5.1) 02/12/18 06:22 Chloride 104 mEq/L (98-107) 02/12/18 06:22 Carbon Dioxide 24.5 mEq/L (21.0-31.0) 02/12/18 06:22 Anion Gap 11.0 (7.0-16.0) 02/12/18 06:22 BUN 14 mg/dL (7-25) 02/12/18 06:22 Creatinine 0.6 mg/dL (0.6-1.2) 02/12/18 06:22 Est GFR ( Amer) > 60.0 ml/min (>90) 02/12/18 06:22 Est GFR (Non-Af Amer) > 60.0 ml/min 02/12/18 06:22 BUN/Creatinine Ratio 23.3 02/12/18 06:22 Glucose 268 mg/dL (70-105) H 02/12/18 06:22 POC Glucose 290 MG/DL (70 - 105) H 02/12/18 10:52 Calcium 9.4 mg/dL (8.6-10.3) 02/12/18 06:22 B-Natriuretic Peptide 243.0 pg/mL (5.0-100.0) H 02/10/18 05:15 Urine Source CLEAN C 02/10/18 00:20 Urine Color YELLOW 02/10/18 00:20 Urine Clarity CLEAR (CLEAR) 02/10/18 00:20 Urine pH 6.0 (4.6 - 8.0) 02/10/18 00:20 Ur Specific [place] <= 1.005 (1.005-1.030) 02/10/18 00:20 Urine Protein NEGATIVE mg/dL (NEGATIVE) 02/10/18 00:20 Urine Glucose (UA) NEGATIVE mg/dL (NEGATIVE) 02/10/18 00:20 Urine Ketones NEGATIVE mg/dL (NEGATIVE) 02/10/18 00:20 Urine Blood NEGATIVE (NEGATIVE) 02/10/18 00:20 Urine Nitrate NEGATIVE (NEGATIVE) 02/10/18 00:20 Urine Bilirubin NEGATIVE (NEGATIVE) 02/10/18 00:20 Urine Urobilinogen 0.2 E.U./dL (0.2 - 1.0) 02/10/18 00:20 Ur Leukocyte Esterase NEGATIVE (NEGATIVE) 02/10/18 00:20 Urine RBC 0-2 /hpf (0-5) 02/10/18 00:20 Urine WBC 0-2 /hpf (0-5) 02/10/18 00:20 Ur Epithelial Cells FEW /lpf (FEW) 02/10/18 00:20 Urine Bacteria FEW /hpf (NONE SEEN) 02/10/18 00:20 Hep Bs Antigen Negative (Negative) 02/11/18 06:35 Hep B Core IgM Ab Negative (Negative) 02/11/18 06:35 Hepatitis C Antibody <0.1 s/co ratio (0.0-0.9) 02/11/18 06:35 - Physical Exam Vitals and I&O: Vital Signs Temp 97.2 F 02/12/18 12:00 Pulse 65 02/12/18 12:00 Resp 18 02/12/18 12:00 BP 157/82 02/12/18 12:00 Pulse Ox 97 02/12/18 12:00 Intake & Output 02/11/18 02/12/18 02/12/18 18:59 06:59 18:59 Intake Total 1780 769.167 Balance 1780 769.167 Weight (lbs) 75.296 kg Intake: Intake, IV Amount 1000 769.167 D5-0.45NS 1,000 ml @ 50 1000 769.167 mls/hr IV .Q20H [facility] Rx#: [id number] Oral 780 Other: # Voids 4 # Bowel Movements 0 Stool Characteristics Formed Weight Source Bedscale Active Medications: Current Medications Dextrose/Sodium Chloride (D5-0.45ns) 1,000 mls @ 50 mls/hr IV .Q20H [facility] Stop: 04/10/18 23:44 Last Admin: 02/12/18 13:32 Dose: 50 mls/hr Insulin Aspart (Novolog Insulin Sliding Scale) 0 units SUBQ BID [facility] PRN Reason: Protocol Stop: 04/11/18 08:59 Last Admin: 02/12/18 10:57 Dose: 6 units Levetiracetam (Keppra) 500 mg PO BID [facility] Stop: 04/11/18 16:59 Last Admin: 02/12/18 10:36 Dose: 500 mg Levofloxacin (Levaquin) 500 mg PO DAILY [facility] Stop: 02/15/18 09:01 Last Admin: 02/12/18 10:35 Dose: 500 mg Methylprednisolone Sodium Succinate (Solu-Medrol) 60 mg IVP Q8HR [facility] Stop: 04/12/18 13:14 Last Admin: 02/12/18 13:31 Dose: 60 mg Tramadol HCl (Ultram) 50 mg PO Q4HR PRN PRN Reason: Mild to moderate pain Stop: 04/10/18 22:29 Last Admin: 02/10/18 04:05 Dose: 50 mg General: Alert HEENT: Atraumatic Neck: Supple Abdomen: Soft Neurological: Normal gait Skin: Other (petechiae on trunk, upper and lower ext.) - Procedures Procedures: Procedures Procedure Code Date DESTRUCTION TONGUE LES 25.1 01/20/09 EXCISION OF TONGUE LESION 41387 01/20/09 Assessment/Plan - Assessment Assessment: 1. Nonspecific petechial rash, etiology to be determined. 2. History of recent new onset seizures. 3. Lamictal, probable cause of the petechiae, so we will change it. 4. History of coronary artery disease and bradycardia. 5. Diabetes type 2. 6. Hypertension. 7. Atrial fibrillation. - Plan Plan: seizure precautions iv solumedrol as ordered by licensed esthetician monitor HR cbc/bmp in am continue current plan of care, will follow customer sales consultant recommendations
--- NOTE | 2018-02-12 16:28 | Infectious Disease Prog Note ---
Infectious Disease Subjective - Review of Systems Service Date: 02/12/18 Events since last encounter: cc uti/seizure hpi-cx negative cxr negative on iv bax ros no fevr o/e vss chest claer abd soft ext pulse dx uti/seizure plan levaquin purpura w/u in progress seizure per neuro Infectious Disease Objective - Results Result Diagrams: 02/12/18 06:22 02/12/18 06:22 Recent Labs: Laboratory Last Values WBC 4.1 Th/cmm (4.8-10.8) L 02/12/18 06:22 RBC 3.81 Mil/cmm (3.80-5.20) 02/12/18 06:22 Hgb 11.7 gm/dL (12-16) L 02/12/18 06:22 Hct 34.2 % (41.0-60) L 02/12/18 06:22 MCV 89.6 fl (81-100) 02/12/18 06:22 MCH 30.5 pg (27.0-31.0) 02/12/18 06:22 MCHC Differential 34.1 pg (28.0-36.0) 02/12/18 06:22 RDW 13.1 % (11.5-20.0) 02/12/18 06:22 Plt Count 216 Th/cmm (150-400) 02/12/18 06:22 MPV 9.3 fl 02/12/18 06:22 Neutrophils % 86.2 % (40.0-80.0) H 02/12/18 06:22 Lymphocytes % 11.1 % (20.0-50.0) L 02/12/18 06:22 Monocytes % 2.5 % (2.0-10.0) 02/12/18 06:22 Eosinophils % 0.1 % (0.0-5.0) 02/12/18 06:22 Basophils % 0.1 % (0.0-2.0) 02/12/18 06:22 ESR 104 mm/hr (0-30) H 02/10/18 05:15 PT 15.8 SECONDS (9.5-11.5) H 02/09/18 16:18 INR 1.49 (0.5-1.4) H 02/09/18 16:18 PTT (Actin FS) 39.5 SECONDS (26.0-38.0) H 02/09/18 16:18 D-Dimer 903 ng/mL (100-400) H 02/10/18 05:15 Sodium 136 mEq/L (136-145) 02/12/18 06:22 Potassium 3.5 mEq/L (3.5-5.1) 02/12/18 06:22 Chloride 104 mEq/L (98-107) 02/12/18 06:22 Carbon Dioxide 24.5 mEq/L (21.0-31.0) 02/12/18 06:22 Anion Gap 11.0 (7.0-16.0) 02/12/18 06:22 BUN 14 mg/dL (7-25) 02/12/18 06:22 Creatinine 0.6 mg/dL (0.6-1.2) 02/12/18 06:22 Est GFR ( Amer) > 60.0 ml/min (>90) 02/12/18 06:22 Est GFR (Non-Af Amer) > 60.0 ml/min 02/12/18 06:22 BUN/Creatinine Ratio 23.3 02/12/18 06:22 Glucose 268 mg/dL (70-105) H 02/12/18 06:22 POC Glucose 290 MG/DL (70 - 105) H 02/12/18 10:52 Calcium 9.4 mg/dL (8.6-10.3) 02/12/18 06:22 B-Natriuretic Peptide 243.0 pg/mL (5.0-100.0) H 02/10/18 05:15 Urine Source CLEAN C 02/10/18 00:20 Urine Color YELLOW 02/10/18 00:20 Urine Clarity CLEAR (CLEAR) 02/10/18 00:20 Urine pH 6.0 (4.6 - 8.0) 02/10/18 00:20 Ur Specific [place] <= 1.005 (1.005-1.030) 02/10/18 00:20 Urine Protein NEGATIVE mg/dL (NEGATIVE) 02/10/18 00:20 Urine Glucose (UA) NEGATIVE mg/dL (NEGATIVE) 02/10/18 00:20 Urine Ketones NEGATIVE mg/dL (NEGATIVE) 02/10/18 00:20 Urine Blood NEGATIVE (NEGATIVE) 02/10/18 00:20 Urine Nitrate NEGATIVE (NEGATIVE) 02/10/18 00:20 Urine Bilirubin NEGATIVE (NEGATIVE) 02/10/18 00:20 Urine Urobilinogen 0.2 E.U./dL (0.2 - 1.0) 02/10/18 00:20 Ur Leukocyte Esterase NEGATIVE (NEGATIVE) 02/10/18 00:20 Urine RBC 0-2 /hpf (0-5) 02/10/18 00:20 Urine WBC 0-2 /hpf (0-5) 02/10/18 00:20 Ur Epithelial Cells FEW /lpf (FEW) 02/10/18 00:20 Urine Bacteria FEW /hpf (NONE SEEN) 02/10/18 00:20 Hep Bs Antigen Negative (Negative) 02/11/18 06:35 Hep B Core IgM Ab Negative (Negative) 02/11/18 06:35 Hepatitis C Antibody <0.1 s/co ratio (0.0-0.9) 02/11/18 06:35 - Physical Exam Vitals and I&O: Vital Signs Temp 97.2 F 02/12/18 12:00 Pulse 65 02/12/18 12:00 Resp 18 02/12/18 12:00 BP 157/82 02/12/18 12:00 Pulse Ox 97 02/12/18 12:00 Intake & Output 02/11/18 02/12/18 02/12/18 18:59 06:59 18:59 Intake Total 1780 769.167 Balance 1780 769.167 Weight (lbs) 75.296 kg Intake: Intake, IV Amount 1000 769.167 D5-0.45NS 1,000 ml @ 50 1000 769.167 mls/hr IV .Q20H [facility] Rx#: [id number] Oral 780 Other: # Voids 4 # Bowel Movements 0 Stool Characteristics Formed Weight Source Bedscale Active Medications: Current Medications Dextrose/Sodium Chloride (D5-0.45ns) 1,000 mls @ 50 mls/hr IV .Q20H [facility] Stop: 04/10/18 23:44 Last Admin: 02/12/18 13:32 Dose: 50 mls/hr Insulin Aspart (Novolog Insulin Sliding Scale) 0 units SUBQ BID [facility] PRN Reason: Protocol Stop: 04/11/18 08:59 Last Admin: 02/12/18 10:57 Dose: 6 units Levetiracetam (Keppra) 500 mg PO BID [facility] Stop: 04/11/18 16:59 Last Admin: 02/12/18 10:36 Dose: 500 mg Levofloxacin (Levaquin) 500 mg PO DAILY [facility] Stop: 02/15/18 09:01 Last Admin: 02/12/18 10:35 Dose: 500 mg Methylprednisolone Sodium Succinate (Solu-Medrol) 60 mg IVP Q8HR [facility] Stop: 04/12/18 13:14 Last Admin: 02/12/18 13:31 Dose: 60 mg Tramadol HCl (Ultram) 50 mg PO Q4HR PRN PRN Reason: Mild to moderate pain Stop: 04/10/18 22:29 Last Admin: 02/10/18 04:05 Dose: 50 mg - Procedures Procedures: Procedures Procedure Code Date DESTRUCTION TONGUE LES 25.1 01/20/09 EXCISION OF TONGUE LESION 64586 01/20/09
[2018-02-13] MEDS: methylPREDNISolone SS 40 mg Vial IVP SCH ×2 (05:39→13:28)
[2018-02-13 05:51] LABS: LYMPHOCYTE ABSOLUTE 0.4 Th/cmm (1.5-3.0); MEAN PLATELET VOLUME 9.3 fl; NEUTROPHILE ABSOLUTE 8.9 Th/cmm (1.8-8.0)
[2018-02-13 05:58] LABS: % BASOPHILS 0.1 % (0.0-2.0); % EOSINOPHILS 0.1 % (0.0-5.0); % MONOCYTES 2.7 % (2.0-10.0); % NEUTROPHILS 92.5 % (40.0-80.0); HEMOGLOBIN 11.5 gm/dL (12-16); MEAN CELL VOLUME 90.5 fl (81-100); MEAN CORPUSCULAR HEMOGLOBIN 30.6 pg (27.0-31.0); MEAN CORPUSCULAR HGB CONC 33.8 pg (28.0-36.0); MONOCYTE ABSOLUTE 0.3 Th/cmm (0.3-1.0); PLATELET COUNT 231 Th/cmm (150-400); RED BLOOD COUNT 3.76 Mil/cmm (3.80-5.20); RED CELL DISTRIBUTION WIDTH 12.9 % (11.5-20.0)
[2018-02-13 05:59] LABS: % LYMPHOCYTES 4.6 % (20.0-50.0); WHITE BLOOD COUNT 9.6 Th/cmm (4.8-10.8)
[2018-02-13 06:06] LABS: ANION GAP 11.9 (7.0-16.0); BUN - UREA NITROGEN 16 mg/dL (7-25); CALCIUM SERUM 9.4 mg/dL (8.6-10.3); CARBON DIOXIDE 24.8 mEq/L (21.0-31.0); CHLORIDE 105 mEq/L (98-107); CREATININE - SERUM 0.6 mg/dL (0.6-1.2); GFR AFRICAN-AMERICAN > 60.0 ml/min (>90); GFR NON AFRICAN-AMERICAN > 60.0 ml/min; INR 1.1 (0.5-1.4); POTASSIUM SERUM 3.7 mEq/L (3.5-5.1); PROTHROMBIN TIME (TEST) 11.5 SECONDS (9.5-11.5); SODIUM SERUM 138 mEq/L (136-145)
[2018-02-13 06:07] LABS: GLUCOSE 293 mg/dL (70-105)
[2018-02-13] MEDS: INSULIN ASPART SLIDING SCALE 100 UNITS/ML UNIT SUBQ SCH ×2 (08:55→17:07)
[2018-02-13] MEDS ORDERED: Magnesium Hydroxide (MOM) 30 mL UDC PO PRN (09:27)
--- NOTE | 2018-02-13 10:50 | General Progress Note ---
Subjective - Review of Systems Service Date: 02/13/18 Subjective: Feels better Objective - Results Result Diagrams: 02/13/18 05:30 02/13/18 05:30 Recent Labs: Laboratory Last Values WBC 9.6 Th/cmm (4.8-10.8) D 02/13/18 05:30 RBC 3.76 Mil/cmm (3.80-5.20) L 02/13/18 05:30 Hgb 11.5 gm/dL (12-16) L 02/13/18 05:30 Hct 34.0 % (41.0-60) L 02/13/18 05:30 MCV 90.5 fl (81-100) 02/13/18 05:30 MCH 30.6 pg (27.0-31.0) 02/13/18 05:30 MCHC Differential 33.8 pg (28.0-36.0) 02/13/18 05:30 RDW 12.9 % (11.5-20.0) 02/13/18 05:30 Plt Count 231 Th/cmm (150-400) 02/13/18 05:30 MPV 9.3 fl 02/13/18 05:30 Neutrophils % 92.5 % (40.0-80.0) H 02/13/18 05:30 Lymphocytes % 4.6 % (20.0-50.0) L 02/13/18 05:30 Monocytes % 2.7 % (2.0-10.0) 02/13/18 05:30 Eosinophils % 0.1 % (0.0-5.0) 02/13/18 05:30 Basophils % 0.1 % (0.0-2.0) 02/13/18 05:30 ESR 104 mm/hr (0-30) H 02/10/18 05:15 PT 11.5 SECONDS (9.5-11.5) 02/13/18 05:30 INR 1.10 (0.5-1.4) 02/13/18 05:30 PTT (Actin FS) 25.1 SECONDS (26.0-38.0) L 02/13/18 05:30 D-Dimer 903 ng/mL (100-400) H 02/10/18 05:15 Sodium 138 mEq/L (136-145) 02/13/18 05:30 Potassium 3.7 mEq/L (3.5-5.1) 02/13/18 05:30 Chloride 105 mEq/L (98-107) 02/13/18 05:30 Carbon Dioxide 24.8 mEq/L (21.0-31.0) 02/13/18 05:30 Anion Gap 11.9 (7.0-16.0) 02/13/18 05:30 BUN 16 mg/dL (7-25) 02/13/18 05:30 Creatinine 0.6 mg/dL (0.6-1.2) 02/13/18 05:30 Est GFR ( Amer) > 60.0 ml/min (>90) 02/13/18 05:30 Est GFR (Non-Af Amer) > 60.0 ml/min 02/13/18 05:30 BUN/Creatinine Ratio 26.7 02/13/18 05:30 Glucose 293 mg/dL (70-105) H D 02/13/18 05:30 POC Glucose 284 MG/DL (70 - 105) H 02/13/18 08:41 Calcium 9.4 mg/dL (8.6-10.3) 02/13/18 05:30 B-Natriuretic Peptide 243.0 pg/mL (5.0-100.0) H 02/10/18 05:15 Urine Source CLEAN C 02/10/18 00:20 Urine Color YELLOW 02/10/18 00:20 Urine Clarity CLEAR (CLEAR) 02/10/18 00:20 Urine pH 6.0 (4.6 - 8.0) 02/10/18 00:20 Ur Specific [place] <= 1.005 (1.005-1.030) 02/10/18 00:20 Urine Protein NEGATIVE mg/dL (NEGATIVE) 02/10/18 00:20 Urine Glucose (UA) NEGATIVE mg/dL (NEGATIVE) 02/10/18 00:20 Urine Ketones NEGATIVE mg/dL (NEGATIVE) 02/10/18 00:20 Urine Blood NEGATIVE (NEGATIVE) 02/10/18 00:20 Urine Nitrate NEGATIVE (NEGATIVE) 02/10/18 00:20 Urine Bilirubin NEGATIVE (NEGATIVE) 02/10/18 00:20 Urine Urobilinogen 0.2 E.U./dL (0.2 - 1.0) 02/10/18 00:20 Ur Leukocyte Esterase NEGATIVE (NEGATIVE) 02/10/18 00:20 Urine RBC 0-2 /hpf (0-5) 02/10/18 00:20 Urine WBC 0-2 /hpf (0-5) 02/10/18 00:20 Ur Epithelial Cells FEW /lpf (FEW) 02/10/18 00:20 Urine Bacteria FEW /hpf (NONE SEEN) 02/10/18 00:20 Hep Bs Antigen Negative (Negative) 02/11/18 06:35 Hep B Core IgM Ab Negative (Negative) 02/11/18 06:35 Hepatitis C Antibody <0.1 s/co ratio (0.0-0.9) 02/11/18 06:35 - Physical Exam Vitals and I&O: Vital Signs Temp 98.2 F 02/13/18 08:11 Pulse 68 02/13/18 08:11 Resp 18 02/13/18 08:11 BP 149/71 02/13/18 08:11 Pulse Ox 97 02/13/18 08:11 Intake & Output 02/12/18 02/13/18 02/13/18 18:59 06:59 18:59 Intake Total 969.167 790 Output Total 600 Balance 369.167 790 Weight (lbs) 75.296 kg 76.204 kg Intake: Intake, IV Amount 769.167 D5-0.45NS 1,000 ml @ 50 769.167 mls/hr IV .Q20H [facility] Rx#: [id number] Oral 200 350 Tube Feeding 440 Output: Urine 600 Other: # Voids 4 # Bowel Movements 0 Stool Characteristics Soft Soft Weight Source Estimated Bedscale Active Medications: Current Medications Bisacodyl (Dulcolax 5 Mg Ec Tab) 5 mg PO DAILY [facility] Stop: 04/15/18 20:59 Glipizide (Glucotrol) 5 mg PO BID [facility] Stop: 04/14/18 16:59 Hydroxyzine HCl (Atarax) 25 mg PO QID PRN; Protocol PRN Reason: Itching Stop: 04/14/18 09:24 Insulin Aspart (Novolog Insulin Sliding Scale) 0 units SUBQ BID [facility]YE PRN Reason: Protocol Stop: 04/11/18 08:59 Last Admin: 02/13/18 08:55 Dose: 6 units Levetiracetam (Keppra) 500 mg PO BID [facility] Stop: 04/11/18 16:59 Last Admin: 02/13/18 08:59 Dose: 500 mg Levofloxacin (Levaquin) 500 mg PO DAILY [facility] Stop: 02/15/18 09:01 Last Admin: 02/13/18 09:00 Dose: 500 mg Magnesium Hydroxide (Milk Of Magnesia) 30 ml PO DAILY PRN PRN Reason: Constipation Stop: 04/14/18 09:26 Metformin HCl (Glucophage) 500 mg PO BID [facility] Stop: 04/14/18 16:59 Methylprednisolone Sodium Succinate (Solu-Medrol) 60 mg IVP Q8HR [facility] Stop: 04/12/18 13:14 Last Admin: 02/13/18 05:39 Dose: 60 mg Tramadol HCl (Ultram) 50 mg PO Q4HR PRN PRN Reason: Mild to moderate pain Stop: 04/10/18 22:29 Last Admin: 02/10/18 04:05 Dose: 50 mg General: Alert HEENT: Atraumatic Neck: Supple Abdomen: Soft Neurological: Normal gait Skin: Other (petechiae on trunk, upper and lower ext. are improving. facial and neck rash better) - Procedures Procedures: Procedures Procedure Code Date DESTRUCTION TONGUE LES 25.1 01/20/09 EXCISION OF TONGUE LESION 87893 01/20/09 Assessment/Plan - Assessment Assessment: * Likely vasculitis'; all johnston was ordered Continue steroids May send home on oral prednisone 40 mg daily and follow as outpatient will need help of Computational Mathematician when discharged
--- NOTE | 2018-02-13 15:07 | Discharge Summary ---
General Discharge Summary - Discharge Summary Date of Admission: 02/09/18 Admitting Diagnosis: Petichial rash, etiology unk Discharge Date: 02/13/18 Discharge Diagnosis: vasculitis. New onset Seizures. Atrial fibrillation. DM- 2. CAD. Hx Bradycardia. Hx Hypertension. S/P Cataract surgery. Pruritis Laboratory Findings: Laboratory Results - last 24 hr 02/12/18 02/12/18 02/12/18 19:28 20:10 21:01 WBC RBC Hgb Hct MCV MCH MCHC Differential RDW Plt Count MPV Neutrophils % Lymphocytes % Monocytes % Eosinophils % Basophils % PT INR PTT (Actin FS) Sodium Potassium Chloride Carbon Dioxide Anion Gap BUN Creatinine Est GFR ( Amer) Est GFR (Non-Af Amer) BUN/Creatinine Ratio Glucose 394 H D POC Glucose 401 H 326 H Calcium 02/13/18 02/13/18 02/13/18 00:16 05:30 05:30 WBC 9.6 D RBC 3.76 L Hgb 11.5 L Hct 34.0 L MCV 90.5 MCH 30.6 MCHC Differential 33.8 RDW 12.9 Plt Count 231 MPV 9.3 Neutrophils % 92.5 H Lymphocytes % 4.6 L Monocytes % 2.7 Eosinophils % 0.1 Basophils % 0.1 PT 11.5 INR 1.10 PTT (Actin FS) 25.1 L Sodium Potassium Chloride Carbon Dioxide Anion Gap BUN Creatinine Est GFR ( Amer) Est GFR (Non-Af Amer) BUN/Creatinine Ratio Glucose POC Glucose 280 H Calcium 02/13/18 02/13/18 05:30 08:41 WBC RBC Hgb Hct MCV MCH MCHC Differential RDW Plt Count MPV Neutrophils % Lymphocytes % Monocytes % Eosinophils % Basophils % PT INR PTT (Actin FS) Sodium 138 Potassium 3.7 Chloride 105 Carbon Dioxide 24.8 Anion Gap 11.9 BUN 16 Creatinine 0.6 Est GFR ( Amer) > 60.0 Est GFR (Non-Af Amer) > 60.0 BUN/Creatinine Ratio 26.7 Glucose 293 H D POC Glucose 284 H Calcium 9.4 Hospital Course: During her hospital stay patient was seen by Hematology - oncology, Print Color Operator and ID. Patient was treated with levaquin for UTI, Klebsiella pneumoniae, . Vasculitis improved with steroid treatment.Rash improved. Xeralto reinstated back for AF. Lamictal changed to Keppra 500 mg bid. Atarax 25 q 6 hrs prn started for itching. Blood sugars were on the high side, probably due to steroid. Patient is on Glipizide 5, bid and metformin 500 bid. will continue all the home meds. Follow up tom suarez explained. will get referrals for Rheumatology, Neurology and Ophtholmology. over all she did better with her treatment and during her stay with us. No seizures noted. Treatment: as per the chart and as in course of the stay Condition at Discharge: Stable Disposition: PT DISCHARGED HOME Home Medications: Home Medication Medication Instructions Recorded Type Aspirin EC [Ecotrin] 81 mg PO DAILY 08/15/16 History Calcium Carbonate [Oyster Shell 500 mg PO BID 08/15/16 History Calcium] Metoprolol Tartrate 50 mg PO BID 08/15/16 History Potassium Chloride ER [Klor-Con] 20 meq PO DAILY 08/15/16 History Calcium Carbonate/Vitamin D3 1 tab 02/09/18 History [Oysco D Tablet] Nifedipine [Nifedipine ER] 90 mg PO DAILY 02/09/18 History Bisacodyl [Dulcolax 5 Mg Ec Tab] 5 mg PO DAILY ect 02/13/18 Rx Glipizide [Glucotrol] 5 mg PO BID tab 02/13/18 Rx Levetiracetam [Keppra] 500 mg PO BID tab 02/13/18 Rx Rivaroxaban [Xarelto] 15 mg PO DAILY tab 02/13/18 Rx hydrOXYzine [Atarax*] 25 mg PO QID PRN tab 02/13/18 Rx metFORMIN [Glucophage] 500 mg PO BID tab 02/13/18 Rx traMADol HCl [Ultram*] 50 mg PO Q4HR PRN tab 02/13/18 Rx Inpatient Medications: Current Medications Bisacodyl (Dulcolax 5 Mg Ec Tab) 5 mg PO DAILY [facility] Stop: 04/15/18 20:59 Glipizide (Glucotrol) 5 mg PO BID [facility] Stop: 04/14/18 16:59 Hydroxyzine HCl (Atarax) 25 mg PO QID PRN; Protocol PRN Reason: Itching Stop: 04/14/18 09:24 Last Admin: 02/13/18 11:01 Dose: 25 mg Insulin Aspart (Novolog Insulin Sliding Scale) 0 units SUBQ BID [facility] PRN Reason: Protocol Stop: 04/11/18 08:59 Last Admin: 02/13/18 08:55 Dose: 6 units Levetiracetam (Keppra) 500 mg PO BID [facility] Stop: 04/11/18 16:59 Last Admin: 02/13/18 08:59 Dose: 500 mg Levofloxacin (Levaquin) 500 mg PO DAILY [facility] Stop: 02/15/18 09:01 Last Admin: 02/13/18 09:00 Dose: 500 mg Magnesium Hydroxide (Milk Of Magnesia) 30 ml PO DAILY PRN PRN Reason: Constipation Stop: 04/14/18 09:26 Metformin HCl (Glucophage) 500 mg PO BID [facility] Stop: 04/14/18 16:59 Methylprednisolone Sodium Succinate (Solu-Medrol) 60 mg IVP Q8HR [facility] Stop: 04/12/18 13:14 Last Admin: 02/13/18 13:28 Dose: 60 mg Rivaroxaban (Xarelto) 15 mg PO DAILY [facility] Stop: 04/14/18 12:29 Last Admin: 02/13/18 13:28 Dose: 15 mg Tramadol HCl (Ultram) 50 mg PO Q4HR PRN PRN Reason: Mild to moderate pain Stop: 04/10/18 22:29 Last Admin: 02/10/18 04:05 Dose: 50 mg Consults and Follow-Up: Nico Cotton [Primary Care Provider] -
--- NOTE | 2018-02-13 18:38 | Infectious Disease Prog Note ---
Infectious Disease Subjective - Review of Systems Service Date: 02/13/18 Subjective: uti seizure hpi- pt schedule for discharge ris no fever o/e vs chest claer abd soft purpura ext dx uti plan d/c levaquin Infectious Disease Objective - Results Result Diagrams: 02/13/18 05:30 02/13/18 05:30 Recent Labs: Laboratory Last Values WBC 9.6 Th/cmm (4.8-10.8) D 02/13/18 05:30 RBC 3.76 Mil/cmm (3.80-5.20) L 02/13/18 05:30 Hgb 11.5 gm/dL (12-16) L 02/13/18 05:30 Hct 34.0 % (41.0-60) L 02/13/18 05:30 MCV 90.5 fl (81-100) 02/13/18 05:30 MCH 30.6 pg (27.0-31.0) 02/13/18 05:30 MCHC Differential 33.8 pg (28.0-36.0) 02/13/18 05:30 RDW 12.9 % (11.5-20.0) 02/13/18 05:30 Plt Count 231 Th/cmm (150-400) 02/13/18 05:30 MPV 9.3 fl 02/13/18 05:30 Neutrophils % 92.5 % (40.0-80.0) H 02/13/18 05:30 Lymphocytes % 4.6 % (20.0-50.0) L 02/13/18 05:30 Monocytes % 2.7 % (2.0-10.0) 02/13/18 05:30 Eosinophils % 0.1 % (0.0-5.0) 02/13/18 05:30 Basophils % 0.1 % (0.0-2.0) 02/13/18 05:30 ESR 104 mm/hr (0-30) H 02/10/18 05:15 PT 11.5 SECONDS (9.5-11.5) 02/13/18 05:30 INR 1.10 (0.5-1.4) 02/13/18 05:30 PTT (Actin FS) 25.1 SECONDS (26.0-38.0) L 02/13/18 05:30 D-Dimer 903 ng/mL (100-400) H 02/10/18 05:15 Sodium 138 mEq/L (136-145) 02/13/18 05:30 Potassium 3.7 mEq/L (3.5-5.1) 02/13/18 05:30 Chloride 105 mEq/L (98-107) 02/13/18 05:30 Carbon Dioxide 24.8 mEq/L (21.0-31.0) 02/13/18 05:30 Anion Gap 11.9 (7.0-16.0) 02/13/18 05:30 BUN 16 mg/dL (7-25) 02/13/18 05:30 Creatinine 0.6 mg/dL (0.6-1.2) 02/13/18 05:30 Est GFR ( Amer) > 60.0 ml/min (>90) 02/13/18 05:30 Est GFR (Non-Af Amer) > 60.0 ml/min 02/13/18 05:30 BUN/Creatinine Ratio 26.7 02/13/18 05:30 Glucose 293 mg/dL (70-105) H D 02/13/18 05:30 POC Glucose 284 MG/DL (70 - 105) H 02/13/18 08:41 Hemoglobin A1c % 6.0 % (4.0-6.0) 02/12/18 06:22 Calcium 9.4 mg/dL (8.6-10.3) 02/13/18 05:30 B-Natriuretic Peptide 243.0 pg/mL (5.0-100.0) H 02/10/18 05:15 Urine Source CLEAN C 02/10/18 00:20 Urine Color YELLOW 02/10/18 00:20 Urine Clarity CLEAR (CLEAR) 02/10/18 00:20 Urine pH 6.0 (4.6 - 8.0) 02/10/18 00:20 Ur Specific [place] <= 1.005 (1.005-1.030) 02/10/18 00:20 Urine Protein NEGATIVE mg/dL (NEGATIVE) 02/10/18 00:20 Urine Glucose (UA) NEGATIVE mg/dL (NEGATIVE) 02/10/18 00:20 Urine Ketones NEGATIVE mg/dL (NEGATIVE) 02/10/18 00:20 Urine Blood NEGATIVE (NEGATIVE) 02/10/18 00:20 Urine Nitrate NEGATIVE (NEGATIVE) 02/10/18 00:20 Urine Bilirubin NEGATIVE (NEGATIVE) 02/10/18 00:20 Urine Urobilinogen 0.2 E.U./dL (0.2 - 1.0) 02/10/18 00:20 Ur Leukocyte Esterase NEGATIVE (NEGATIVE) 02/10/18 00:20 Urine RBC 0-2 /hpf (0-5) 02/10/18 00:20 Urine WBC 0-2 /hpf (0-5) 02/10/18 00:20 Ur Epithelial Cells FEW /lpf (FEW) 02/10/18 00:20 Urine Bacteria FEW /hpf (NONE SEEN) 02/10/18 00:20 Hep Bs Antigen Negative (Negative) 02/11/18 06:35 Hep B Core IgM Ab Negative (Negative) 02/11/18 06:35 Hepatitis C Antibody <0.1 s/co ratio (0.0-0.9) 02/11/18 06:35 - Physical Exam Vitals and I&O: Vital Signs Temp 97.6 F 02/13/18 15:52 Pulse 65 02/13/18 15:52 Resp 18 02/13/18 15:52 BP 167/69 02/13/18 15:52 Pulse Ox 98 02/13/18 15:52 Intake & Output 02/12/18 02/13/18 02/13/18 18:59 06:59 18:59 Intake Total 969.167 790 Output Total 600 Balance 369.167 790 Weight (lbs) 75.296 kg 76.204 kg Intake: Intake, IV Amount 769.167 D5-0.45NS 1,000 ml @ 50 769.167 mls/hr IV .Q20H [facility] Rx#: [id number] Oral 200 350 Tube Feeding 440 Output: Urine 600 Other: # Voids 4 # Bowel Movements 0 Stool Characteristics Soft Soft Soft Weight Source Estimated Bedscale - Procedures Procedures: Procedures Procedure Code Date DESTRUCTION TONGUE LES 25.1 01/20/09 EXCISION OF TONGUE LESION 61124 01/20/09
[2018-02-17 11:29] LABS: CRYOGLOBULIN QUAL SEE REF. LAB REPORT
== END 2018-02-13 17:00 | disposition home or self-care (01) | DRG 546 ==
LOC: ER 15:42 → MSI 17:58
PROVIDERS: ADMIT General Practice; ATTEND General Practice
DX: I77.6 Arteritis, unspecified (principal); N39.0 Urinary tract infection, site not specified; R21 Rash and other nonspecific skin eruption; E11.9 Type 2 diabetes mellitus without complications; G40.909 Epilepsy, unspecified, not intractable, without status epilepticus; I25.119 Atherosclerotic heart disease of native coronary artery with unspecified angina pectoris; I10 Essential (primary) hypertension; I48.91 Unspecified atrial fibrillation; M81.0 Age-related osteoporosis without current pathological fracture; D69.2 Other nonthrombocytopenic purpura; L29.9 Pruritus, unspecified; B96.1 Klebsiella pneumoniae [K. pneumoniae] as the cause of diseases classified elsewhere; T38.0X5A Adverse effect of glucocorticoids and synthetic analogues, initial encounter; Y92.89 Other specified places as the place of occurrence of the external cause; Z82.49 Family history of ischemic heart disease and other diseases of the circulatory system; Z79.84 Long term (current) use of oral hypoglycemic drugs; Z79.01 Long term (current) use of anticoagulants
CPT/HCPCS: 36415-UA; 71046-TC; 80048-TC; 81001-TC; 82595-90; 82947-TC; 82948-90; 83036-90; 83880-TC; 85007-TC; 85025-TC; 85027-TC; 85379-TC; 85610-TC; 85652-TC; 85730-TC; 86021-90; 86160-90; 86705-90; 86803-90; 87086-90; 87340-90; 90732; 93005; 93970-TC-50; J1815; J2920; Z7610

== ENCOUNTER 2019-02-01 12:23 | Inpatient (IN) | payer OTHER, MEDICAID ==
--- NOTE | 2019-02-01 13:18 | ED Physician Chart ---
ED Chief Complaint/HPI - Patient Information Date Seen:: 02/01/19 Time Seen:: 13:05 Chief Complaint:: leg swelling History of Present Illness:: Patient's had intermittent leg swelling and pain for last 3 weeks. No chest pain or shortness of breath. 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) Review:: Nurse's Note Reviewed ED Review of Systems - Review of Systems General/Constitutional: No fever, No chills, No weight loss, No weakness, No diaphoresis, No edema, No loss of appetite Skin: No skin lesions, No rash, No bruising Head: No headache, No light-headedness Eyes: No loss of vision, No pain, No diplopia ENT: No earache, No nasal drainage, No sore throat, No tinnitus Neck: No neck pain, No swelling, No thyromegaly, No stiffness, No mass noted Cardio Vascular: No chest pain, No palpitations, No PND, No orthopnea, No edema Pulmonary: No SOB, No cough, No sputum, No wheezing GI: No nausea, No vomiting, No diarrhea, No pain, No melena, No hematochezia, No constipation, No hematemesis G/U: No dysuria, No frequency, No hematuria Musculoskeletal: Bone or joint pain, No back pain, Muscle pain (leg pain and swelling as stated in the history), Other Endocrine: No polyuria, No polydipsia Psychiatric: No prior psych history, No depression, No anxiety, No suicidal ideation Hematopoietic: No bruising, No lymphadenopathy Allergic/Immuno: No urticaria, No angioedema Neurological: No syncope, No focal symptoms, No weakness, No paresthesia, No headache, No seizure, No dizziness, No confusion, No vertigo ED Past Medical History - Past Medical History Past Medical History: HTN, DM, Other Family History: Heart disease, Diabetes Melitus, HTN Social History: Non Smoker Surgical History: other (right-sided neck after trauma) Psychiatricy History: None Family Medical History - Family Member Mother History Unknown: Yes Ethnicity: Living Status: Hx Family Cancer: No Hx Family Coronary Artery Disease: No Hx Family Congestive Heart Failure: No Hx Family Hypertension: No Hx Family Stroke: No Hx Family Diabetes: No Hx Family Seizures: No Hx Family Dementia: No Hx Family AIDS: No Hx Family HIV: No Hx Family COPD: No Hx Family Hepatitis: No Hx Family Psychiatric Problems: No Hx Family Tuberculosis: No father History Unknown: Yes Ethnicity: Living Status: Hx Family Cancer: No Hx Family Coronary Artery Disease: No Hx Family Congestive Heart Failure: No Hx Family Hypertension: Yes Hx Family Stroke: No Hx Family Diabetes: Yes Hx Family Seizures: No Hx Family Dementia: No Hx Family AIDS: No Hx Family HIV: No Hx Family COPD: No Hx Family Hepatitis: No Hx Family Psychiatric Problems: No Hx Family Tuberculosis: No ED Physical Exam - Physical Examination General/Constitutional: Awake, Well-developed, well-nourished, Alert, No distress, GCS 15, Non-toxic appearing, Ambulatory Head: Atraumatic Eyes: Lids, conjuctiva normal, PERRL, EOMI Skin: Nl inspection, No rash, No skin lesions, No ecchymosis, Well hydrated, No lymphadenopathy ENMT: External ears, nose nl, Nasal exam nl, Lips, teeth, gums nl Neck: Nontender, Full ROM w/o pain, No JVD, No nuchal rigidity, No bruit, No mass, No stridor Respiratory: Nl effort/Exclusion, Clear to Auscultation, No Wheeze/Rhonchi/Rales Cardio Vascular: No murmur, gallop, rubs, NL S1 S2 Other Cardio Vascular comments:: Rapid irregularly irregular rhythm GI: No tenderness/rebounding/guarding, No organomegaly, No hernia, Normal BS's, Nondistended, No mass/bruits, No McBurney tenderness Other GI comments:: Abdomen protuberant : No CVA tenderness Other Extremities comments:: 3 out of 4 pretibial pitting edema Neuro/Psych: Alert/oriented, DTR's symmetric, Normal sensory exam, Normal motor strength, Judgement/insight normal, Mood normal, Normal gait, No focal deficits Misc: Normal back, No paraspinal tenderness ED Labs/Radiology/EKG Results - Lab Results Results: Laboratory Results WBC 8.7 Th/cmm (4.8-10.8) 02/01/19 13:15 RBC 3.89 Mil/cmm (3.80-5.20) 02/01/19 13:15 Hgb 10.3 gm/dL (12-16) L 02/01/19 13:15 Hct 31.2 % (41.0-60) L 02/01/19 13:15 MCV 80.2 fl (81-100) L 02/01/19 13:15 MCH 26.5 pg (27.0-31.0) L 02/01/19 13:15 MCHC Differential 33.0 pg (28.0-36.0) 02/01/19 13:15 RDW 14.2 % (11.5-20.0) 02/01/19 13:15 Plt Count 237 Th/cmm (150-400) 02/01/19 13:15 MPV 9.0 fl 02/01/19 13:15 Neutrophils % 65.2 % (40.0-80.0) 02/01/19 13:15 Lymphocytes % 24.1 % (20.0-50.0) 02/01/19 13:15 Monocytes % 8.3 % (2.0-10.0) 02/01/19 13:15 Eosinophils % 1.7 % (0.0-5.0) 02/01/19 13:15 Basophils % 0.7 % (0.0-2.0) 02/01/19 13:15 Sodium 139 mEq/L (136-145) 02/01/19 13:15 Potassium 3.7 mEq/L (3.5-5.1) 02/01/19 13:15 Chloride 105 mEq/L (98-107) 02/01/19 13:15 Carbon Dioxide 21.9 mEq/L (21.0-31.0) 02/01/19 13:15 Anion Gap 15.8 (7.0-16.0) 02/01/19 13:15 BUN 21 mg/dL (7-25) 02/01/19 13:15 Creatinine 0.8 mg/dL (0.6-1.2) 02/01/19 13:15 Est GFR ( Amer) > 60.0 ml/min (>90) 02/01/19 13:15 Est GFR (Non-Af Amer) > 60.0 ml/min 02/01/19 13:15 BUN/Creatinine Ratio 26.3 02/01/19 13:15 Glucose 109 mg/dL (70-105) H 02/01/19 13:15 Calcium 9.4 mg/dL (8.6-10.3) 02/01/19 13:15 Total Bilirubin 0.4 mg/dL (0.3-1.0) 02/01/19 13:15 AST 23 U/L (13-39) 02/01/19 13:15 ALT 16 U/L (7-52) 02/01/19 13:15 Alkaline Phosphatase 99 U/L (34-104) 02/01/19 13:15 Total Protein 7.3 gm/dL (6.0-8.3) 02/01/19 13:15 Albumin 4.5 gm/dL (3.7-5.3) 02/01/19 13:15 Globulin 2.8 gm/dL 02/01/19 13:15 Albumin/Globulin Ratio 1.6 (1.0-1.8) 02/01/19 13:15 - Radiology Results Results: Mild pulmonary congestion and atherosclerotic vascular disease - EKG Interpretations Rate & Rhythm: atrial fibrillation with a rate of 115 [place]: normal Comments:: Nonspecific T-wave changes ED Assessment - Assessment General Assessment: ralked to Dr. Cotton at about 1545 and she will admit the patient and wants a venous Doppler of both lower extremities done. ED Septic Shock - . Is Septic Shock (SBP<90, OR Lactate>4 mmol\L) present?: No - <6hrs of presentation: Vital Signs: Vital Signs - 8 hr 02/01/19 12:40 Temp 98 F HR 124 RR 18 BP 114/86 O2 Sat % 96 ED Reassessment (Disposition) - Reassessment Reassessment Condition:: Unchanged - Diagnosis Diagnosis:: Atrial fibrillation with rapid ventricular response; peripheral edema; possible congestive heart failure - Aftercare/Follow up Instructions Aftercare/Follow-Up Instructions:: Counseled pt regarding lab results/diagnosis & need follow up - Patient Disposition Admitted to:: Telemetry Spoke to:: Nico Cotton Admitting Medical Physician:: Nico Cotton Condition at Disposition:: Stable, Improved
[2019-02-01] MEDS ORDERED: Diltiazem 5 mg/mL 5mL Vial IVP STA (13:22)
[2019-02-01 13:29] LABS: % BASOPHILS 0.7 % (0.0-2.0); % EOSINOPHILS 1.7 % (0.0-5.0); % LYMPHOCYTES 24.1 % (20.0-50.0); % MONOCYTES 8.3 % (2.0-10.0); % NEUTROPHILS 65.2 % (40.0-80.0); BASOPHILE ABSOLUTE 0.1 Th/cumm (0-0.2); EOSINOPHILE ABSOLUTE 0.1 Th/cmm (0.1-0.4); HEMATOCRIT 31.2 % (41.0-60); HEMOGLOBIN 10.3 gm/dL (12-16); LYMPHOCYTE ABSOLUTE 2.1 Th/cmm (1.5-3.0); MEAN CELL VOLUME 80.2 fl (81-100); MEAN CORPUSCULAR HEMOGLOBIN 26.5 pg (27.0-31.0); MONOCYTE ABSOLUTE 0.7 Th/cmm (0.3-1.0); NEUTROPHILE ABSOLUTE 5.7 Th/cmm (1.8-8.0); PLATELET COUNT 237 Th/cmm (150-400); RED BLOOD COUNT 3.89 Mil/cmm (3.80-5.20); RED CELL DISTRIBUTION WIDTH 14.2 % (11.5-20.0); WHITE BLOOD COUNT 8.7 Th/cmm (4.8-10.8)
[2019-02-01] MEDS ORDERED: Diltiazem 5 mg/mL 5mL Vial IVP ONE (13:33)
--- NOTE | 2019-02-01 13:35 | Diagnostic Imaging Report ---
CHEST X-RAY: AP view INDICATION: CHF COMPARISON: 02/10/2018 FINDINGS: Mild congestive changes are noted. No focal solid effusions. Cardiomegaly is noted with atherosclerosis. Postsurgical changes of the lower cervical spine are noted. IMPRESSION: Mild congestive changes. No focal consolidation identified Cardiomegaly and atherosclerotic vascular disease.
[2019-02-01 13:38] LABS: INR 1.27 (0.5-1.4); PROTHROMBIN TIME (TEST) 13.1 SECONDS (9.5-11.5)
[2019-02-01 13:44] LABS: ALB/GLOB RATIO 1.6 (1.0-1.8); ALBUMIN 4.5 gm/dL (3.7-5.3); ALKALINE PHOSPHATASE 99 U/L (34-104); ANION GAP 15.8 (7.0-16.0); BILIRUBIN,TOTAL 0.4 mg/dL (0.3-1.0); BUN - UREA NITROGEN 21 mg/dL (7-25); CALCIUM SERUM 9.4 mg/dL (8.6-10.3); CARBON DIOXIDE 21.9 mEq/L (21.0-31.0); CHLORIDE 105 mEq/L (98-107); CREATININE - SERUM 0.8 mg/dL (0.6-1.2); GFR AFRICAN-AMERICAN > 60.0 ml/min (>90); GFR NON AFRICAN-AMERICAN > 60.0 ml/min; GLUCOSE 109 mg/dL (70-105); POTASSIUM SERUM 3.7 mEq/L (3.5-5.1); SGOT 23 U/L (13-39); SGPT/ALT 16 U/L (7-52); SODIUM SERUM 139 mEq/L (136-145); TOTAL PROTEIN,SERUM 7.3 gm/dL (6.0-8.3)
[2019-02-01] MEDS ORDERED: Morphine Sulfate 2 mg/mL 1mL Syr IV STA (14:21)
[2019-02-01] MEDS ORDERED: Morphine Sulfate 2 mg/mL 1mL Syr ONE (14:31)
--- NOTE | 2019-02-01 17:35 | History & Physical ---
ADMIT DATE: 02/01/2019 HISTORY OF PRESENT ILLNESS: This patient is a 68-year-old female who was admitted here through the Emergency Room from the [facility] with the complaints of severe leg swelling and pain to walk for the last 3 weeks and the patient also has mild shortness of breath, but no chest pain was noted. The patient's vital signs at present right now is heart rate 136, blood pressure 121/59, respirations 14, and saturating 94% on the room air. The patient has been examined by Dr. Trujillo in the Emergency Room and studies have been done with a chest x-ray and the labs and on admission, the patient did not have any elevated temperature. No fevers and no chills, no weight loss, but she had multiple admissions in the past, once in 2015 to the [facility] and recent admission was on 06/27/2018 to [facility]. At that time, she was admitted with syncope and the slow heart rate. She stayed almost for 3 weeks in the hospital with syncopal episodes and the patient at that time was diaphoretic and heart rate was low and bradycardia. The patient was stabilized and was referred to have an external cardiac pacemaker and was referred to the horticulture worker, but as per the history given by the sisters and the patient the horticulture worker could not place the pacemaker secondary to some abnormal echocardiogram that he found with a leak in one of the valves, that is the history given, but I needed to verify the same notes from the Cardiology. Prior to this admission on 06/27/2018 at [facility], she was seen here in my clinic with the same complaints of syncopal attack twice and the patient was referred to [facility] if her symptoms did not improve that is when she was admitted with symptomatic bradycardia, enoc and tachy syndrome and she was unable to tolerate AV vinicio yulisa according to the diagnosis at the [facility] and then they also suggested the pacemaker and the patient's chest x-ray at that time also showed mild increase in pulmonary edema and then she also has a history of atrial fibrillation for which she was placed on Xarelto, which she was taking and today she came to the clinic with severe complaints of leg pain and at that time, she was referred to the Emergency Room here in the [facility] and she was admitted here and at present the patient does have no chest pain, but she does have severe leg pain and then the swelling and unable to walk. REVIEW OF SYSTEMS: GENERAL CONSTITUTIONAL : The patient has no fevers, no chills, no weight loss and no diaphoresis. SKIN: Has no lesions. No rashes or bruising. HEENT: Head: No headache. Eyes: No loss of vision. ENT: No earache. No nasal discharge. No sore throat. CARDIOVASCULAR : No chest pain, no palpitation. PULMONARY MELGOZA: Mild shortness of breath but no cough, no sore throat and no wheezing. GASTROINTESTINAL : No nausea, no vomiting, no diarrhea. GENITOURINARY :No dysuria, no frequency, no hematuria. MUSCULOSKELETAL : The patient has severe leg pain and swelling as stated in the history for the last 3 weeks, which has progressively increased. ENDOCRINE : No polyuria, no polydipsia. PSYCHIATRIC : No psychiatric history. ALLERGIC AND IMMUNOLOGICAL : No urticaria. No angioedema. NEUROLOGICAL: The patient has no syncope, no focal symptoms, no weakness, no paresthesia, no headache, no vertigo, no confusion. PAST MEDICAL HISTORY: The patient is known to have hypertension, diabetes and also history of atrial fibrillation which was treated and also had non-STEMI in the past, but she was not a surgical candidate for putting any stent at that time and she does have diabetes, which is fairly under control. FAMILY HISTORY: Significant for heart disease, diabetes, and hypertension. SOCIAL HISTORY: She is a nonsmoker. PAST SURGICAL HISTORY: None. PSYCHIATRIC HISTORY: None. ALLERGIES: She is allergic to CODEINE. PHYSICAL EXAMINATION: GENERAL AND CONSTITUTIONAL: She is awake and afebrile and well-nourished, but she is in severe distress and pain secondary to the leg swelling and difficulty in walking. HEENT: Head is atraumatic and normocephalic. Eyes: PERRLA. Ear, nose, mouth, and throat is normal. SKIN: On inspection, no rash and no skin lesions and no ecchymosis. NECK: Nontender and full range of motion noted. RESPIRATORY : The patient has no wheezing and clear to auscultate. CARDIOVASCULAR : S1, S2 heard and heart rate was tachycardic ranging between 130 and 136 and cardiovascular EKG shows rapid irregularly irregular rhythm. GASTROINTESTINAL: Nontender, no diarrhea, no vomiting, no nausea. Abdomen is protuberant secondary to her obesity. EXTREMITIES: 3+ pretibial pitting edema noted and pain, tenderness on squeezing and pain to walk. NEURO AND PSYCHOLOGICAL : She is alert and oriented and DTRs are symmetric. LABORATORY AND DIAGNOSTIC DATA: Pertinent labs: WBC is 8.7, hemoglobin 10.3, hematocrit 31.2 and platelets 237. Sodium 139, potassium 3.7, chloride 105, BUN 21, creatinine 0.8, glucose 109. Chest x-ray shows mild pulmonary congestion and atherosclerotic vascular disease and EKG was done which showed atrial fibrillation with a rate of 115-130 and nonspecific T-wave changes. ASSESSMENT: At this time: 1. Bilateral leg swelling, rule out deep venous thrombosis. 2. Congestive heart failure, BNP 650. 3. Atrial fibrillation. 4. History of bradycardia, needing pacemaker. 5. Diabetes mellitus. 6. Hypertension. The plan is to admit her to the telemetry and we will do the Doppler study of the bilateral legs in the Emergency Room and continue on her home medications and we will start her on the Lasix 40 mg IV push once a day and Dr. Paul Hatfield for Cardiology consult and we will monitor the patient and once the patient is stable we will discharge her after being consulted with Cardiology. JOB# [id number] ANAMARIA
[2019-02-01] MEDS ORDERED: Dextrose 50% 50 mL Abboject IVP PRN (22:52)
[2019-02-01] MEDS ORDERED: GLUCAGON HCl 1 MG KIT IM PRN (22:52)
[2019-02-01] MEDS ORDERED: Aspirin 81mg Chewable Tab PO SCH (23:17)
[2019-02-02] MEDS: Morphine Sulfate 2 mg/mL 1mL Syr IVP PRN ×2 (00:02→10:33)
[2019-02-02 02:09] VITALS: BP 126/62
[2019-02-02] MEDS: Levothyroxine 0.05 Mg Tab PO SCH (06:41)
[2019-02-02] MEDS: INSULIN LISPRO SLIDING SCALE 100 UNITS/ML UNIT SUBQ SCH ×4 (06:43→21:02)
[2019-02-02] MEDS: Calcium Carb/Vit D 500 mg/200 U Tab PO SCH (08:27)
[2019-02-02] MEDS: Potassium Chloride 20 mEq ER Tab PO SCH (08:27)
[2019-02-02] MEDS ORDERED: NIFEdipine 30 mg ER Tab PO SCH (09:00)
[2019-02-02] MEDS ORDERED: Aspirin 81mg Chewable Tab PO SCH (09:00)
--- NOTE | 2019-02-02 12:35 | General Progress Note ---
Subjective - Review of Systems Service Date: 02/02/19 Events since last encounter: Patient is in the bed. Afebrile. Pain is improving. Swelling also reduced. Objective - Results Result Diagrams: 02/01/19 13:15 02/01/19 13:15 Recent Labs: Laboratory Last Values WBC 8.7 Th/cmm (4.8-10.8) 02/01/19 13:15 RBC 3.89 Mil/cmm (3.80-5.20) 02/01/19 13:15 Hgb 10.3 gm/dL (12-16) L 02/01/19 13:15 Hct 31.2 % (41.0-60) L 02/01/19 13:15 MCV 80.2 fl (81-100) L 02/01/19 13:15 MCH 26.5 pg (27.0-31.0) L 02/01/19 13:15 MCHC Differential 33.0 pg (28.0-36.0) 02/01/19 13:15 RDW 14.2 % (11.5-20.0) 02/01/19 13:15 Plt Count 237 Th/cmm (150-400) 02/01/19 13:15 MPV 9.0 fl 02/01/19 13:15 Neutrophils % 65.2 % (40.0-80.0) 02/01/19 13:15 Lymphocytes % 24.1 % (20.0-50.0) 02/01/19 13:15 Monocytes % 8.3 % (2.0-10.0) 02/01/19 13:15 Eosinophils % 1.7 % (0.0-5.0) 02/01/19 13:15 Basophils % 0.7 % (0.0-2.0) 02/01/19 13:15 PT 13.1 SECONDS (9.5-11.5) H 02/01/19 13:15 INR 1.27 (0.5-1.4) 02/01/19 13:15 Sodium 139 mEq/L (136-145) 02/01/19 13:15 Potassium 3.7 mEq/L (3.5-5.1) 02/01/19 13:15 Chloride 105 mEq/L (98-107) 02/01/19 13:15 Carbon Dioxide 21.9 mEq/L (21.0-31.0) 02/01/19 13:15 Anion Gap 15.8 (7.0-16.0) 02/01/19 13:15 BUN 21 mg/dL (7-25) 02/01/19 13:15 Creatinine 0.8 mg/dL (0.6-1.2) 02/01/19 13:15 Est GFR ( Amer) > 60.0 ml/min (>90) 02/01/19 13:15 Est GFR (Non-Af Amer) > 60.0 ml/min 02/01/19 13:15 BUN/Creatinine Ratio 26.3 02/01/19 13:15 Glucose 109 mg/dL (70-105) H 02/01/19 13:15 POC Glucose 143 MG/DL (70 - 105) H 02/02/19 11:06 Calcium 9.4 mg/dL (8.6-10.3) 02/01/19 13:15 Total Bilirubin 0.4 mg/dL (0.3-1.0) 02/01/19 13:15 AST 23 U/L (13-39) 02/01/19 13:15 ALT 16 U/L (7-52) 02/01/19 13:15 Alkaline Phosphatase 99 U/L (34-104) 02/01/19 13:15 Troponin I < 0.01 ng/mL (0.01-0.05) L 02/01/19 13:15 B-Natriuretic Peptide 647.0 pg/mL (5.0-100.0) H 02/01/19 13:15 Total Protein 7.3 gm/dL (6.0-8.3) 02/01/19 13:15 Albumin 4.5 gm/dL (3.7-5.3) 02/01/19 13:15 Globulin 2.8 gm/dL 02/01/19 13:15 Albumin/Globulin Ratio 1.6 (1.0-1.8) 02/01/19 13:15 - Physical Exam Vitals and I&O: Vital Signs Temp 97.4 F 02/02/19 08:00 Pulse 120 02/02/19 08:28 Resp 19 02/02/19 08:00 BP 134/73 02/02/19 08:27 Pulse Ox 95 02/02/19 08:00 Intake & Output 02/01/19 02/02/19 02/02/19 18:59 06:59 18:59 Intake Total 450 Balance 450 Weight (lbs) 90.265 kg 90.265 kg Intake: Oral 450 Other: # Voids 1 Stool Characteristics Soft Soft Weight Source Estimated Bedscale Active Medications: Current Medications Amiodarone HCl (Cordarone) 200 mg PO DAILY [facility] Stop: 04/03/19 08:59 Last Admin: 02/02/19 08:28 Dose: 200 mg Amlodipine Besylate (Norvasc) 5 mg PO BID [facility] Stop: 04/03/19 08:59 Last Admin: 02/02/19 08:27 Dose: 5 mg Calcium/Vitamin D (Oscal W/Vitamin D) 1 tab PO DAILY [facility] Stop: 04/03/19 08:59 Last Admin: 02/02/19 08:27 Dose: 1 tab Dextrose (D50w) 50 ml IVP PRN PRN PRN Reason: Blood Glucose less than 70 Stop: 04/02/19 22:51 Dextrose (Glutose 40%) 18.75 gm PO PRN PRN PRN Reason: Blood Glucose less than 70 Stop: 04/02/19 22:51 Furosemide (Lasix) 40 mg IVP DAILY [facility] Stop: 04/03/19 08:59 Last Admin: 02/02/19 08:27 Dose: 40 mg Glipizide (Glucotrol) 5 mg PO DAILY [facility] Stop: 04/03/19 08:59 Last Admin: 02/02/19 08:28 Dose: 5 mg Glucagon (Glucagen) 1 mg IM PRN PRN PRN Reason: Blood Glucose less than 70 Stop: 04/02/19 22:51 Insulin Human Lispro (Humalog Insulin Sliding Scale) 0 units SUBQ ACHS [facility]; Protocol Stop: 04/03/19 07:29 Last Admin: 02/02/19 11:45 Dose: Not Given Levothyroxine Sodium (Synthroid) 0.05 mg PO QDAC [facility] Stop: 04/03/19 07:29 Last Admin: 02/02/19 06:41 Dose: 0.05 mg Metformin HCl (Glucophage) 1,000 mg PO BIDWM [facility] Stop: 04/03/19 07:59 Last Admin: 02/02/19 08:28 Dose: 1,000 mg Morphine Sulfate (Morphine) 2 mg IVP Q4HR PRN PRN Reason: Pain (Severe) Stop: 04/02/19 23:01 Last Admin: 02/02/19 10:33 Dose: 2 mg Potassium Chloride (Klor-Con) 20 meq PO DAILY [facility] Stop: 04/03/19 08:59 Last Admin: 02/02/19 08:27 Dose: 20 meq Rivaroxaban (Xarelto) 15 mg PO DAILY [facility] Stop: 04/03/19 08:59 Last Admin: 02/02/19 08:28 Dose: 15 mg Tramadol HCl (Ultram) 50 mg PO Q6HR PRN PRN Reason: Pain (Moderate) Stop: 04/02/19 23:03 - Procedures Procedures: Procedures Procedure Code Date DESTRUCTION TONGUE LES 25.1 01/20/09 EXCISION OF TONGUE LESION 00652 01/20/09
--- NOTE | 2019-02-02 12:44 | General Progress Note ---
Subjective - Review of Systems Service Date: 02/02/19 Subjective: Patient is awake, not in distress. Pain in the legs better Objective - Results Result Diagrams: 02/01/19 13:15 02/01/19 13:15 Recent Labs: Laboratory Last Values WBC 8.7 Th/cmm (4.8-10.8) 02/01/19 13:15 RBC 3.89 Mil/cmm (3.80-5.20) 02/01/19 13:15 Hgb 10.3 gm/dL (12-16) L 02/01/19 13:15 Hct 31.2 % (41.0-60) L 02/01/19 13:15 MCV 80.2 fl (81-100) L 02/01/19 13:15 MCH 26.5 pg (27.0-31.0) L 02/01/19 13:15 MCHC Differential 33.0 pg (28.0-36.0) 02/01/19 13:15 RDW 14.2 % (11.5-20.0) 02/01/19 13:15 Plt Count 237 Th/cmm (150-400) 02/01/19 13:15 MPV 9.0 fl 02/01/19 13:15 Neutrophils % 65.2 % (40.0-80.0) 02/01/19 13:15 Lymphocytes % 24.1 % (20.0-50.0) 02/01/19 13:15 Monocytes % 8.3 % (2.0-10.0) 02/01/19 13:15 Eosinophils % 1.7 % (0.0-5.0) 02/01/19 13:15 Basophils % 0.7 % (0.0-2.0) 02/01/19 13:15 PT 13.1 SECONDS (9.5-11.5) H 02/01/19 13:15 INR 1.27 (0.5-1.4) 02/01/19 13:15 Sodium 139 mEq/L (136-145) 02/01/19 13:15 Potassium 3.7 mEq/L (3.5-5.1) 02/01/19 13:15 Chloride 105 mEq/L (98-107) 02/01/19 13:15 Carbon Dioxide 21.9 mEq/L (21.0-31.0) 02/01/19 13:15 Anion Gap 15.8 (7.0-16.0) 02/01/19 13:15 BUN 21 mg/dL (7-25) 02/01/19 13:15 Creatinine 0.8 mg/dL (0.6-1.2) 02/01/19 13:15 Est GFR ( Amer) > 60.0 ml/min (>90) 02/01/19 13:15 Est GFR (Non-Af Amer) > 60.0 ml/min 02/01/19 13:15 BUN/Creatinine Ratio 26.3 02/01/19 13:15 Glucose 109 mg/dL (70-105) H 02/01/19 13:15 POC Glucose 143 MG/DL (70 - 105) H 02/02/19 11:06 Calcium 9.4 mg/dL (8.6-10.3) 02/01/19 13:15 Total Bilirubin 0.4 mg/dL (0.3-1.0) 02/01/19 13:15 AST 23 U/L (13-39) 02/01/19 13:15 ALT 16 U/L (7-52) 02/01/19 13:15 Alkaline Phosphatase 99 U/L (34-104) 02/01/19 13:15 Troponin I < 0.01 ng/mL (0.01-0.05) L 02/01/19 13:15 B-Natriuretic Peptide 647.0 pg/mL (5.0-100.0) H 02/01/19 13:15 Total Protein 7.3 gm/dL (6.0-8.3) 02/01/19 13:15 Albumin 4.5 gm/dL (3.7-5.3) 02/01/19 13:15 Globulin 2.8 gm/dL 02/01/19 13:15 Albumin/Globulin Ratio 1.6 (1.0-1.8) 02/01/19 13:15 - Physical Exam Vitals and I&O: Vital Signs Temp 97.4 F 02/02/19 08:00 Pulse 120 02/02/19 08:28 Resp 19 02/02/19 08:00 BP 134/73 02/02/19 08:27 Pulse Ox 95 02/02/19 08:00 Intake & Output 02/01/19 02/02/19 02/02/19 18:59 06:59 18:59 Intake Total 450 Balance 450 Weight (lbs) 90.265 kg 90.265 kg Intake: Oral 450 Other: # Voids 1 Stool Characteristics Soft Soft Weight Source Estimated Bedscale Active Medications: Current Medications Amiodarone HCl (Cordarone) 200 mg PO DAILY [facility] Stop: 04/03/19 08:59 Last Admin: 02/02/19 08:28 Dose: 200 mg Amlodipine Besylate (Norvasc) 5 mg PO BID [facility] Stop: 04/03/19 08:59 Last Admin: 02/02/19 08:27 Dose: 5 mg Calcium/Vitamin D (Oscal W/Vitamin D) 1 tab PO DAILY [facility] Stop: 04/03/19 08:59 Last Admin: 02/02/19 08:27 Dose: 1 tab Dextrose (D50w) 50 ml IVP PRN PRN PRN Reason: Blood Glucose less than 70 Stop: 04/02/19 22:51 Dextrose (Glutose 40%) 18.75 gm PO PRN PRN PRN Reason: Blood Glucose less than 70 Stop: 04/02/19 22:51 Furosemide (Lasix) 40 mg IVP DAILY [facility] Stop: 04/03/19 08:59 Last Admin: 02/02/19 08:27 Dose: 40 mg Glipizide (Glucotrol) 5 mg PO DAILY [facility] Stop: 04/03/19 08:59 Last Admin: 02/02/19 08:28 Dose: 5 mg Glucagon (Glucagen) 1 mg IM PRN PRN PRN Reason: Blood Glucose less than 70 Stop: 04/02/19 22:51 Insulin Human Lispro (Humalog Insulin Sliding Scale) 0 units SUBQ ACHS [facility]; Protocol Stop: 04/03/19 07:29 Last Admin: 02/02/19 11:45 Dose: Not Given Levothyroxine Sodium (Synthroid) 0.05 mg PO QDAC [facility] Stop: 04/03/19 07:29 Last Admin: 02/02/19 06:41 Dose: 0.05 mg Metformin HCl (Glucophage) 1,000 mg PO BIDWM [facility] Stop: 04/03/19 07:59 Last Admin: 02/02/19 08:28 Dose: 1,000 mg Morphine Sulfate (Morphine) 2 mg IVP Q4HR PRN PRN Reason: Pain (Severe) Stop: 04/02/19 23:01 Last Admin: 02/02/19 10:33 Dose: 2 mg Potassium Chloride (Klor-Con) 20 meq PO DAILY [facility] Stop: 04/03/19 08:59 Last Admin: 02/02/19 08:27 Dose: 20 meq Rivaroxaban (Xarelto) 15 mg PO DAILY [facility] Stop: 04/03/19 08:59 Last Admin: 02/02/19 08:28 Dose: 15 mg Tramadol HCl (Ultram) 50 mg PO Q6HR PRN PRN Reason: Pain (Moderate) Stop: 04/02/19 23:03 General: Alert, No acute distress HEENT: Atraumatic, PERRLA Neck: Supple Cardiovascular: Normal S1, Normal S2 Lungs: Clear to auscultation Abdomen: Soft Extremities: Edema (no) - Procedures Procedures: Procedures Procedure Code Date DESTRUCTION TONGUE LES 25.1 01/20/09 EXCISION OF TONGUE LESION 43652 01/20/09 Assessment/Plan - Assessment Assessment: Bilateral leg swelling CHF exacerbation Atial fibrillation DM-2 HTN Hx Tach/Agustin syndrome Obesity - Plan Plan: CPM
[2019-02-02] MEDS ORDERED: VTE Chemical Prophylaxis Screen/Admission MC PRN (14:22)
--- NOTE | 2019-02-02 16:04 | General Progress Note ---
Subjective - Review of Systems Service Date: 02/02/19 Subjective: Patient has less swelling in the legs or complaining of palpitation Objective - Results Result Diagrams: 02/01/19 13:15 02/01/19 13:15 Recent Labs: Laboratory Last Values WBC 8.7 Th/cmm (4.8-10.8) 02/01/19 13:15 RBC 3.89 Mil/cmm (3.80-5.20) 02/01/19 13:15 Hgb 10.3 gm/dL (12-16) L 02/01/19 13:15 Hct 31.2 % (41.0-60) L 02/01/19 13:15 MCV 80.2 fl (81-100) L 02/01/19 13:15 MCH 26.5 pg (27.0-31.0) L 02/01/19 13:15 MCHC Differential 33.0 pg (28.0-36.0) 02/01/19 13:15 RDW 14.2 % (11.5-20.0) 02/01/19 13:15 Plt Count 237 Th/cmm (150-400) 02/01/19 13:15 MPV 9.0 fl 02/01/19 13:15 Neutrophils % 65.2 % (40.0-80.0) 02/01/19 13:15 Lymphocytes % 24.1 % (20.0-50.0) 02/01/19 13:15 Monocytes % 8.3 % (2.0-10.0) 02/01/19 13:15 Eosinophils % 1.7 % (0.0-5.0) 02/01/19 13:15 Basophils % 0.7 % (0.0-2.0) 02/01/19 13:15 PT 13.1 SECONDS (9.5-11.5) H 02/01/19 13:15 INR 1.27 (0.5-1.4) 02/01/19 13:15 Sodium 139 mEq/L (136-145) 02/01/19 13:15 Potassium 3.7 mEq/L (3.5-5.1) 02/01/19 13:15 Chloride 105 mEq/L (98-107) 02/01/19 13:15 Carbon Dioxide 21.9 mEq/L (21.0-31.0) 02/01/19 13:15 Anion Gap 15.8 (7.0-16.0) 02/01/19 13:15 BUN 21 mg/dL (7-25) 02/01/19 13:15 Creatinine 0.8 mg/dL (0.6-1.2) 02/01/19 13:15 Est GFR ( Amer) > 60.0 ml/min (>90) 02/01/19 13:15 Est GFR (Non-Af Amer) > 60.0 ml/min 02/01/19 13:15 BUN/Creatinine Ratio 26.3 02/01/19 13:15 Glucose 109 mg/dL (70-105) H 02/01/19 13:15 POC Glucose 143 MG/DL (70 - 105) H 02/02/19 11:06 Calcium 9.4 mg/dL (8.6-10.3) 02/01/19 13:15 Total Bilirubin 0.4 mg/dL (0.3-1.0) 02/01/19 13:15 AST 23 U/L (13-39) 02/01/19 13:15 ALT 16 U/L (7-52) 02/01/19 13:15 Alkaline Phosphatase 99 U/L (34-104) 02/01/19 13:15 Troponin I < 0.01 ng/mL (0.01-0.05) L 02/01/19 13:15 B-Natriuretic Peptide 647.0 pg/mL (5.0-100.0) H 02/01/19 13:15 Total Protein 7.3 gm/dL (6.0-8.3) 02/01/19 13:15 Albumin 4.5 gm/dL (3.7-5.3) 02/01/19 13:15 Globulin 2.8 gm/dL 02/01/19 13:15 Albumin/Globulin Ratio 1.6 (1.0-1.8) 02/01/19 13:15 - Physical Exam Vitals and I&O: Vital Signs Temp 97.4 F 02/02/19 16:00 Pulse 120 02/02/19 16:00 Resp 19 02/02/19 16:00 BP 132/73 02/02/19 16:00 Pulse Ox 93 02/02/19 16:00 Intake & Output 02/01/19 02/02/19 02/02/19 18:59 06:59 18:59 Intake Total 450 Balance 450 Weight (lbs) 90.265 kg 90.265 kg Intake: Oral 450 Other: # Voids 1 Stool Characteristics Soft Soft Weight Source Estimated Bedscale Active Medications: Current Medications Amiodarone HCl (Cordarone) 200 mg PO DAILY [facility] Stop: 04/03/19 08:59 Last Admin: 02/02/19 08:28 Dose: 200 mg Amlodipine Besylate (Norvasc) 5 mg PO BID [facility] Stop: 04/03/19 08:59 Last Admin: 02/02/19 08:27 Dose: 5 mg Calcium/Vitamin D (Oscal W/Vitamin D) 1 tab PO DAILY [facility] Stop: 04/03/19 08:59 Last Admin: 02/02/19 08:27 Dose: 1 tab Dextrose (D50w) 50 ml IVP PRN PRN PRN Reason: Blood Glucose less than 70 Stop: 04/02/19 22:51 Dextrose (Glutose 40%) 18.75 gm PO PRN PRN PRN Reason: Blood Glucose less than 70 Stop: 04/02/19 22:51 Furosemide (Lasix) 40 mg IVP DAILY [facility] Stop: 04/03/19 08:59 Last Admin: 02/02/19 08:27 Dose: 40 mg Glipizide (Glucotrol) 5 mg PO DAILY [facility] Stop: 04/03/19 08:59 Last Admin: 02/02/19 08:28 Dose: 5 mg Glucagon (Glucagen) 1 mg IM PRN PRN PRN Reason: Blood Glucose less than 70 Stop: 04/02/19 22:51 Insulin Human Lispro (Humalog Insulin Sliding Scale) 0 units SUBQ ACHS [facility]; Protocol Stop: 04/03/19 07:29 Last Admin: 02/02/19 11:45 Dose: Not Given Levothyroxine Sodium (Synthroid) 0.05 mg PO QDAC [facility] Stop: 04/03/19 07:29 Last Admin: 02/02/19 06:41 Dose: 0.05 mg Metformin HCl (Glucophage) 1,000 mg PO BIDWM [facility] Stop: 04/03/19 07:59 Last Admin: 02/02/19 08:28 Dose: 1,000 mg Miscellaneous (Vte Chemical Prophylaxis Screen/ Admission) 1 ea [facility] PRN PRN PRN Reason: PROTOCOL Stop: 04/03/19 14:21 Morphine Sulfate (Morphine) 2 mg IVP Q4HR PRN PRN Reason: Pain (Severe) Stop: 04/02/19 23:01 Last Admin: 02/02/19 10:33 Dose: 2 mg Potassium Chloride (Klor-Con) 20 meq PO DAILY [facility] Stop: 04/03/19 08:59 Last Admin: 02/02/19 08:27 Dose: 20 meq Rivaroxaban (Xarelto) 20 mg PO DAILY [facility] Stop: 04/04/19 08:59 Tramadol HCl (Ultram) 50 mg PO Q6HR PRN PRN Reason: Pain (Moderate) Stop: 04/02/19 23:03 General: Alert, No acute distress HEENT: Atraumatic, PERRLA Neck: Supple Cardiovascular: Normal S1, Normal S2 Lungs: Clear to auscultation Abdomen: Soft Extremities: Edema (no) - Procedures Procedures: Procedures Procedure Code Date DESTRUCTION TONGUE LES 25.1 01/20/09 EXCISION OF TONGUE LESION 80316 01/20/09 Assessment/Plan - Assessment Assessment: Uncontrolled atrial fibrillation Congestive heart failure diastolic dysfunction acute Diabetes mellitus type 2 Hypertension Osteoporosis - Plan Plan: Patient on Lasix R alto and Cardizem to control the heart rate
[2019-02-02] MEDS ORDERED: Diltiazem 30 mg Tab PO SCH (16:15)
[2019-02-02] MEDS ORDERED: Diltiazem 30 mg Tab PO ONE (23:30)
[2019-02-03 06:52] LABS: ANION GAP 15.8 (7.0-16.0); BUN - UREA NITROGEN 20 mg/dL (7-25); CALCIUM SERUM 9.1 mg/dL (8.6-10.3); CARBON DIOXIDE 23.1 mEq/L (21.0-31.0); CHLORIDE 103 mEq/L (98-107); CREATININE - SERUM 0.8 mg/dL (0.6-1.2); GFR AFRICAN-AMERICAN > 60.0 ml/min (>90); GFR NON AFRICAN-AMERICAN > 60.0 ml/min; GLUCOSE 167 mg/dL (70-105); POTASSIUM SERUM 3.9 mEq/L (3.5-5.1); SODIUM SERUM 138 mEq/L (136-145)
[2019-02-03] MEDS: Levothyroxine 0.05 Mg Tab PO SCH (06:52)
[2019-02-03] MEDS: Diltiazem 30 mg Tab PO SCH ×2 (06:55→12:30)
--- NOTE | 2019-02-03 07:09 | Consultation ---
DATE OF CONSULTATION: 02/02/[address] Cotton. 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 The patient at the present time complaining of swelling in both lower extremities with palpitation. At this time, the patient is brought to Emergency Room, found to have uncontrolled atrial fibrillation with congestive heart failure and hence the patient is admitted. PAST MEDICAL HISTORY: Atrial fibrillation, congestive heart failure, diastolic dysfunction, diabetes mellitus type 2, and hypertension. FAMILY HISTORY: Unremarkable. SOCIAL HISTORY: No history of smoking, alcohol abuse. ALLERGIES: No known allergies. PHYSICAL EXAMINATION: VITAL SIGNS: Blood pressure 125/70, pulse 120 and irregular, and respirations 28. HEAD: Normocephalic. No lumps or bumps. EYES: Pupils equal, reactive to light. Fundi show AV nicking, sclerae white, conjunctivae pink. NECK: Carotid 2+. Normal upstroke. JVD 10 cm above sternal angle. Thyroid not palpable. Lymph nodes not palpable. CHEST: Shows increased AP diameter. No kyphosis, scoliosis. LUNGS: Bilateral rales. Decreased breath sounds both the bases. HEART: PMI sixth intercostal space with lateral to midclavicular line. S1, S2, S3, S4. S1 irregular. Systolic murmur. ABDOMEN: Soft, hepatojugular reflux positive, bowel sounds active. NEUROLOGIC: Unremarkable. EXTREMITIES: Peripheral pulses feeble with minimal pedal edema. CLINICAL IMPRESSION: Atrial fibrillation with rapid ventricular response; congestive heart failure, diastolic dysfunction, acute; diabetes mellitus type 2; hypertension; osteoporosis; and hypothyroidism. PLAN: The patient to continue present medication. We will start the patient on Xarelto, control the heart rate, and monitor the patient. We will also get an echocardiogram and repeat BNP level. [facility]# [id number]
[2019-02-03] MEDS: INSULIN LISPRO SLIDING SCALE 100 UNITS/ML UNIT SUBQ SCH ×2 (07:27→11:02)
[2019-02-03] MEDS: Calcium Carb/Vit D 500 mg/200 U Tab PO SCH (08:39)
[2019-02-03] MEDS: Potassium Chloride 20 mEq ER Tab PO SCH (08:39)
[2019-02-03] MEDS: Morphine Sulfate 2 mg/mL 1mL Syr IVP PRN (11:03)
--- NOTE | 2019-02-03 14:47 | General Progress Note ---
Subjective - Review of Systems Service Date: 02/03/19 Subjective: Patient has no swelling of the legs no complaint of shortness of breath Patient feels better Objective - Results Result Diagrams: 02/01/19 13:15 02/03/19 05:20 Recent Labs: Laboratory Last Values WBC 8.7 Th/cmm (4.8-10.8) 02/01/19 13:15 RBC 3.89 Mil/cmm (3.80-5.20) 02/01/19 13:15 Hgb 10.3 gm/dL (12-16) L 02/01/19 13:15 Hct 31.2 % (41.0-60) L 02/01/19 13:15 MCV 80.2 fl (81-100) L 02/01/19 13:15 MCH 26.5 pg (27.0-31.0) L 02/01/19 13:15 MCHC Differential 33.0 pg (28.0-36.0) 02/01/19 13:15 RDW 14.2 % (11.5-20.0) 02/01/19 13:15 Plt Count 237 Th/cmm (150-400) 02/01/19 13:15 MPV 9.0 fl 02/01/19 13:15 Neutrophils % 65.2 % (40.0-80.0) 02/01/19 13:15 Lymphocytes % 24.1 % (20.0-50.0) 02/01/19 13:15 Monocytes % 8.3 % (2.0-10.0) 02/01/19 13:15 Eosinophils % 1.7 % (0.0-5.0) 02/01/19 13:15 Basophils % 0.7 % (0.0-2.0) 02/01/19 13:15 PT 13.1 SECONDS (9.5-11.5) H 02/01/19 13:15 INR 1.27 (0.5-1.4) 02/01/19 13:15 Sodium 138 mEq/L (136-145) 02/03/19 05:20 Potassium 3.9 mEq/L (3.5-5.1) 02/03/19 05:20 Chloride 103 mEq/L (98-107) 02/03/19 05:20 Carbon Dioxide 23.1 mEq/L (21.0-31.0) 02/03/19 05:20 Anion Gap 15.8 (7.0-16.0) 02/03/19 05:20 BUN 20 mg/dL (7-25) 02/03/19 05:20 Creatinine 0.8 mg/dL (0.6-1.2) 02/03/19 05:20 Est GFR ( Amer) > 60.0 ml/min (>90) 02/03/19 05:20 Est GFR (Non-Af Amer) > 60.0 ml/min 02/03/19 05:20 BUN/Creatinine Ratio 25.0 02/03/19 05:20 Glucose 167 mg/dL (70-105) H 02/03/19 05:20 POC Glucose 114 MG/DL (70 - 105) H 02/03/19 11:01 Calcium 9.1 mg/dL (8.6-10.3) 02/03/19 05:20 Total Bilirubin 0.4 mg/dL (0.3-1.0) 02/01/19 13:15 AST 23 U/L (13-39) 02/01/19 13:15 ALT 16 U/L (7-52) 02/01/19 13:15 Alkaline Phosphatase 99 U/L (34-104) 02/01/19 13:15 Troponin I < 0.01 ng/mL (0.01-0.05) L 02/01/19 13:15 B-Natriuretic Peptide 339.0 pg/mL (5.0-100.0) H 02/03/19 05:20 Total Protein 7.3 gm/dL (6.0-8.3) 02/01/19 13:15 Albumin 4.5 gm/dL (3.7-5.3) 02/01/19 13:15 Globulin 2.8 gm/dL 02/01/19 13:15 Albumin/Globulin Ratio 1.6 (1.0-1.8) 02/01/19 13:15 - Physical Exam Vitals and I&O: Vital Signs Temp 97.8 F 02/03/19 12:00 Pulse 128 02/03/19 12:30 Resp 18 02/03/19 12:00 BP 121/67 02/03/19 12:00 Pulse Ox 95 02/03/19 12:00 Intake & Output 02/02/19 02/03/19 02/03/19 18:59 06:59 18:59 Intake Total 500 340 Balance 500 340 Weight (lbs) 90.265 kg 90.083 kg Intake: Oral 500 340 Other: # Voids 1 4 # Bowel Movements 0 0 Stool Characteristics Soft Soft Weight Source Bedscale Bedscale Active Medications: Current Medications Amiodarone HCl (Cordarone) 200 mg PO DAILY [facility] Stop: 04/03/19 08:59 Last Admin: 02/03/19 08:33 Dose: 200 mg Amlodipine Besylate (Norvasc) 5 mg PO BID [facility] Stop: 04/03/19 08:59 Last Admin: 02/03/19 08:33 Dose: 5 mg Calcium/Vitamin D (Oscal W/Vitamin D) 1 tab PO DAILY [facility] Stop: 04/03/19 08:59 Last Admin: 02/03/19 08:39 Dose: 1 tab Dextrose (D50w) 50 ml IVP PRN PRN PRN Reason: Blood Glucose less than 70 Stop: 04/02/19 22:51 Dextrose (Glutose 40%) 18.75 gm PO PRN PRN PRN Reason: Blood Glucose less than 70 Stop: 04/02/19 22:51 Diltiazem HCl (Cardizem) 30 mg PO Q8HR [facility] Stop: 04/04/19 04:59 Last Admin: 02/03/19 12:30 Dose: 30 mg Furosemide (Lasix) 40 mg IVP DAILY [facility] Stop: 04/03/19 08:59 Last Admin: 02/03/19 08:39 Dose: 40 mg Glipizide (Glucotrol) 5 mg PO DAILY [facility] Stop: 04/03/19 08:59 Last Admin: 02/03/19 08:39 Dose: 5 mg Glucagon (Glucagen) 1 mg IM PRN PRN PRN Reason: Blood Glucose less than 70 Stop: 04/02/19 22:51 Insulin Human Lispro (Humalog Insulin Sliding Scale) 0 units SUBQ ACHS [facility]; Protocol Stop: 04/03/19 07:29 Last Admin: 02/03/19 11:02 Dose: Not Given Levothyroxine Sodium (Synthroid) 0.05 mg PO QDAC [facility] Stop: 04/03/19 07:29 Last Admin: 04/27/19 06:52 Dose: 0.05 mg Metformin HCl (Glucophage) 1,000 mg PO BIDWM [facility] Stop: 04/03/19 07:59 Last Admin: 02/03/19 08:16 Dose: 1,000 mg Miscellaneous (Vte Chemical Prophylaxis Screen/ Admission) 1 ea [facility] PRN PRN PRN Reason: PROTOCOL Stop: 04/03/19 14:21 Morphine Sulfate (Morphine) 2 mg IVP Q4HR PRN PRN Reason: Pain (Severe) Stop: 04/02/19 23:01 Last Admin: 02/03/19 11:03 Dose: 2 mg Potassium Chloride (Klor-Con) 20 meq PO DAILY [facility] Stop: 04/03/19 08:59 Last Admin: 02/03/19 08:39 Dose: 20 meq Rivaroxaban (Xarelto) 20 mg PO DAILY [facility] Stop: 04/04/19 08:59 Last Admin: 02/03/19 08:39 Dose: 20 mg Tramadol HCl (Ultram) 50 mg PO Q6HR PRN PRN Reason: Pain (Moderate) Stop: 04/02/19 23:03 General: Alert, No acute distress HEENT: Atraumatic, PERRLA Neck: Supple Cardiovascular: Normal S1, Normal S2 Lungs: Clear to auscultation Abdomen: Soft Extremities: Edema (no) - Procedures Procedures: Procedures Procedure Code Date DESTRUCTION TONGUE LES 25.1 01/20/09 EXCISION OF TONGUE LESION 74929 01/20/09 Assessment/Plan - Assessment Assessment: Uncontrolled atrial fibrillation Congestive heart failure diastolic dysfunction acute Diabetes mellitus type 2 Hypertension Osteoporosis Echocardiogram ejection fraction 40% hypertrophy of the left ventricle moderate to severe pulmonary hypertension right ventricular systolic pressure 58 mmHg moderate mitral regurgitation moderate aortic regurgitation. To Severe Tricuspid Regurgitation - Plan Plan: Patient on Lasix R alto and Cardizem to control the heart rate is line patient to continue on anticoagulation fluid restriction and salt restriction discharge planning cardiac status stable for discharge
--- NOTE | 2019-02-03 14:50 | Discharge Summary ---
General Discharge Summary - Discharge Summary Date of Admission: 02/01/19 Admitting Diagnosis: CHF exacerbation, Atrial Fibrillation, B/L Leg swelling Discharge Date: 02/03/19 Discharge Diagnosis: Cor Pulmonale,Pulmonary Hypertension, Hx Tachy-Agustin syndrome,Severe Tricuspid regurgitation, CHF systolic dysfunction acute, Low ejection 40%,. Hx of NSTEMI, DM-2, Hx of Atrial Fibrillation Laboratory Findings: Laboratory Results - last 24 hr 02/02/19 02/02/19 02/03/19 16:30 20:58 05:20 Sodium 138 Potassium 3.9 Chloride 103 Carbon Dioxide 23.1 Anion Gap 15.8 BUN 20 Creatinine 0.8 Est GFR ( Amer) > 60.0 Est GFR (Non-Af Amer) > 60.0 BUN/Creatinine Ratio 25.0 Glucose 167 H POC Glucose 96 165 H Calcium 9.1 B-Natriuretic Peptide 02/03/19 02/03/19 02/03/19 05:20 06:15 11:01 Sodium Potassium Chloride Carbon Dioxide Anion Gap BUN Creatinine Est GFR ( Amer) Est GFR (Non-Af Amer) BUN/Creatinine Ratio Glucose POC Glucose 163 H 114 H Calcium B-Natriuretic Peptide 339.0 H Hospital Course: Patient's stay was uneventful. LEG swelling decresed with IV Lasix and rest. Pantograph Transferrer Dr Paul Hatfield did an echo which showed acute CHF with systolic dysfunction, Ejection fraction 40% and also pulmonary hypertention. Today being discharged with instructions to take medications as written by benchroom shop optician. She maxwell be discharged on Lasix 20 mg every other day, Sidanefil 20 mg daily, K+ supplement, and Tramadol 50 for pain. Condition at Discharge: Stable Disposition: PT DISCHARGED HOME Home Medications: Home Medication Medication Instructions Recorded Type Aspirin EC [Ecotrin] 81 mg PO DAILY 08/15/16 History Calcium Carbonate [Oyster Shell 500 mg PO BID 08/15/16 History Calcium] Metoprolol Tartrate 50 mg PO BID 08/15/16 History Potassium Chloride ER [Klor-Con] 20 meq PO DAILY 08/15/16 History Calcium Carbonate/Vitamin D3 1 tab 02/09/18 History [Oysco D Tablet] Nifedipine [Nifedipine ER] 90 mg PO DAILY 02/09/18 History Bisacodyl [Dulcolax 5 Mg Ec Tab] 5 mg PO DAILY ect 02/13/18 Rx Glipizide [Glucotrol] 5 mg PO BID tab 02/13/18 Rx Rivaroxaban [Xarelto] 15 mg PO DAILY tab 02/13/18 Rx hydrOXYzine [Atarax*] 25 mg PO QID PRN tab 02/13/18 Rx metFORMIN [Glucophage] 500 mg PO BID tab 02/13/18 Rx traMADol HCl [Ultram*] 50 mg PO Q4HR PRN tab 02/13/18 Rx Furosemide [Lasix] 40 mg IV DAILY #7 vial 02/01/19 Rx Levetiracetam [Keppra] 500 mg PO BID 7 Days tab 02/01/19 Rx Calcium Carb/Vit D 500mg/200U 1 tab PO DAILY tab 02/03/19 Rx [Oscal w/Vitamin D] Diltiazem [Cardizem*] 30 mg PO Q8HR tab 02/03/19 Rx Furosemide [Lasix] 40 mg IVP DAILY #0 vial 02/03/19 Rx Glipizide [Glucotrol] 5 mg PO DAILY tab 02/03/19 Rx Levothyroxine [Synthroid] 0.05 mg PO QDAC tab 02/03/19 Rx Rivaroxaban [Xarelto] 20 mg PO DAILY tab 02/03/19 Rx amLODIPine Besylate [Norvasc] 5 mg PO BID tab 02/03/19 Rx metFORMIN [Glucophage] 1,000 mg PO BIDWM tab 02/03/19 Rx traMADol HCl [Ultram*] 50 mg PO Q6HR PRN tab 02/03/19 Rx Inpatient Medications: Current Medications Amiodarone HCl (Cordarone) 200 mg PO DAILY [facility] Stop: 04/03/19 08:59 Last Admin: 02/03/19 08:33 Dose: 200 mg Amlodipine Besylate (Norvasc) 5 mg PO BID [facility] Stop: 04/03/19 08:59 Last Admin: 02/03/19 08:33 Dose: 5 mg Calcium/Vitamin D (Oscal W/Vitamin D) 1 tab PO DAILY [facility] Stop: 04/03/19 08:59 Last Admin: 02/03/19 08:39 Dose: 1 tab Dextrose (D50w) 50 ml IVP PRN PRN PRN Reason: Blood Glucose less than 70 Stop: 04/02/19 22:51 Dextrose (Glutose 40%) 18.75 gm PO PRN PRN PRN Reason: Blood Glucose less than 70 Stop: 04/02/19 22:51 Diltiazem HCl (Cardizem) 30 mg PO Q8HR [facility] Stop: 04/04/19 04:59 Last Admin: 02/03/19 12:30 Dose: 30 mg Furosemide (Lasix) 40 mg IVP DAILY [facility] Stop: 04/03/19 08:59 Last Admin: 02/03/19 08:39 Dose: 40 mg Glipizide (Glucotrol) 5 mg PO DAILY [facility] Stop: 04/03/19 08:59 Last Admin: 02/03/19 08:39 Dose: 5 mg Glucagon (Glucagen) 1 mg IM PRN PRN PRN Reason: Blood Glucose less than 70 Stop: 04/02/19 22:51 Insulin Human Lispro (Humalog Insulin Sliding Scale) 0 units SUBQ [facility]; Protocol Stop: 04/03/19 07:29 Last Admin: 02/03/19 11:02 Dose: Not Given Levothyroxine Sodium (Synthroid) 0.05 mg PO QDAC [facility] Stop: 04/03/19 07:29 Last Admin: 02/03/19 06:52 Dose: 0.05 mg Metformin HCl (Glucophage) 1,000 mg PO BIDWM [facility] Stop: 04/03/19 07:59 Last Admin: 02/03/19 08:16 Dose: 1,000 mg Miscellaneous (Vte Chemical Prophylaxis Screen/ Admission) 1 ea [facility] PRN PRN PRN Reason: PROTOCOL Stop: 04/03/19 14:21 Morphine Sulfate (Morphine) 2 mg IVP Q4HR PRN PRN Reason: Pain (Severe) Stop: 04/02/19 23:01 Last Admin: 02/03/19 11:03 Dose: 2 mg Potassium Chloride (Klor-Con) 20 meq PO DAILY [facility] Stop: 04/03/19 08:59 Last Admin: 02/03/19 08:39 Dose: 20 meq Rivaroxaban (Xarelto) 20 mg PO DAILY [facility] Stop: 04/04/19 08:59 Last Admin: 02/03/19 08:39 Dose: 20 mg Tramadol HCl (Ultram) 50 mg PO Q6HR PRN PRN Reason: Pain (Moderate) Stop: 04/02/19 23:03 Prescriptions: Furosemide [Lasix] 40 mg IV DAILY #7 vial Levetiracetam [Keppra] 500 mg PO BID 7 Days tab Activity: As Tolerated Discharge Diet: 2 Gram Sodium, Cardiac Consults and Follow-Up: Nico Cotton [Primary Care Provider] -
--- NOTE | 2019-02-03 14:56 | Cardiology ---
02/02/[address] Cotton. M-MODE ECHOCARDIOGRAM: Mitral valve, anterior leaflet of mitral valve shows decreased excursion, EF velocity. Posterior leaflet of the mitral valve shows decreased excursion. Left ventricular posterior wall shows increased thickness, normal excursion. Interventricular septum shows increased thickness, decreased excursion, ejection fraction %. Left atrium normal. Aortic root shows normal dimension, normal excursion of aortic leaflets. CONCLUSION: Hypertrophy of the left ventricle, ejection fraction 40%. 2D ECHO: Long axis view shows enlarged left ventricular cavity with decreased ejection fraction, hypertrophy of the left ventricle. Left atrium normal. Aortic root shows normal dimension, normal excursion of aortic leaflets. Short axis view of mitral valve normal. Short axis view of aortic valve normal. Apical four chamber view shows cardiomyopathy, ejection fraction 40%. Left atrium normal. Right ventricular cavity, right atrium normal, no pericardial effusion. CONCLUSION: Cardiomyopathy, ejection fraction 40%. Hypertrophy of the left ventricle. Doppler study shows mild to moderate mitral regurgitation, mild to moderate aortic regurgitation, mild to severe tricuspid regurgitation, right ventricular systolic pressure 58 mmHg with moderate pulmonary hypertension. CONCLUSION: Cardiomyopathy, ejection fraction 40%, hypertrophy of the left ventricle, moderate to severe pulmonary hypertension, moderate mitral regurgitation, moderate aortic regurgitation, severe tricuspid regurgitation. [facility]# [id number]
== END 2019-02-03 16:09 | disposition home or self-care (01) | DRG 308 ==
LOC: ER 12:23 → TELE 15:40
PROVIDERS: ADMIT General Practice; ATTEND General Practice
DX: I48.91 Unspecified atrial fibrillation (principal); I50.43 Acute on chronic combined systolic (congestive) and diastolic (congestive) heart failure; I11.0 Hypertensive heart disease with heart failure; E11.9 Type 2 diabetes mellitus without complications; I27.29 Other secondary pulmonary hypertension; R00.1 Bradycardia, unspecified; I08.3 Combined rheumatic disorders of mitral, aortic and tricuspid valves; E66.9 Obesity, unspecified; M81.0 Age-related osteoporosis without current pathological fracture; E03.9 Hypothyroidism, unspecified; I25.2 Old myocardial infarction; Z68.32 Body mass index [BMI] 32.0-32.9, adult; Z88.5 Allergy status to narcotic agent; Z82.49 Family history of ischemic heart disease and other diseases of the circulatory system; Z83.3 Family history of diabetes mellitus
CPT/HCPCS: 36415-UA; 71045-TC; 80048-TC; 80053-TC; 82948-90; 83880-TC; 84484-TC; 85025-TC; 85610-TC; 90779; 93005; 93970-TC-50; 96374; 96375; J1940; J2270; J2405; Z7610